=== PATIENT | female | born 1960 | race Caucasian/White ===

== ENCOUNTER 2022-10-18 13:06 | Outpatient (OUT) | payer MEDICARE, MEDICAID, SELFPAY ==
[2022-10-18 14:33] LABS: Basophils Absolute Auto 0.1 10^3/uL (0.0-0.1); Basophils Percent Auto 0.7 % (0.2-2.0); Eosinophils Absolute Auto 0.1 10^3/uL (0.0-0.7); Eosinophils Percent Auto 0.7 % (0.9-7.0); Immature Granulocytes Abs Auto 0.04 10^3/uL (0.00-0.03); Immature Granulocytes Pct Auto 0.3 % (0.0-0.5); Lymphocytes Percent Auto 15.4 % (20.5-60.0); Mean Corpuscular HGB Conc 33.3 g/dL (29.9-35.2); Mean Corpuscular Hemoglobin 32.7 pg (26.7-34.0); Mean Platelet Volume 11.7 fL (9.5-13.5); Monocytes Absolute Auto 0.7 10^3/uL (0.3-0.8); Monocytes Percent Auto 5.4 % (1.7-12.0); Neutrophils Absolute Auto 10.3 10^3/uL (1.4-6.5); Neutrophils Percent Auto 77.5 % (43.0-75.0); Platelet Count 239 10^3/uL (150-450); Red Cell Distribution Width 12.8 % (11.0-15.0); White Blood Count 13.3 10^3/uL (4.0-11.0)
[2022-10-18 15:07] LABS: Estimated Average Glucose 143 mg/dL; Glycohemoglobin A1C 6.6 % (4.5-6.2)
[2022-10-18 15:25] LABS: Alanine Aminotransferase 56 U/L (14-59); Albumin Globulin Ratio 0.9; Albumin Level 3.6 g/dL (3.4-5.0); Alkaline Phosphatase 103 U/L (46-116); Anion Gap 8.7; Aspartate Amino Transferase 39 U/L (15-37); BUN Creatinine Ratio 27.4; Bilirubin Total 0.3 mg/dL (0.2-1.0); Calcium 9.6 mg/dL (8.5-10.1); Carbon Dioxide 28.9 mmol/L (21.0-32.0); Chloride 100 mmol/L (98-107); Estimated GFR (African America 59 (>=60); Estimated GFR (Non-African Ame 49 (>=60); Globulin 3.9 g/dL; Glucose 144 mg/dL (74-106); Potassium 3.6 mmol/L (3.5-5.1); Sodium 134 mmol/L (136-145); Thyroid Stimulating Hormone 1.811 uIU/mL (0.358-3.740); Total Protein 7.5 g/dL (6.4-8.2)
[2022-10-18 17:26] LABS: Free T4 0.96 ng/dL (0.76-1.46)
== END 2022-10-18 13:07 | disposition home or self-care (01) ==
LOC: LAB 13:12
PROVIDERS: PCP Family Medicine; Visit Provider Family Medicine
DX: D51.3 Other dietary vitamin B12 deficiency anemia (principal); N18.30 Chronic kidney disease, stage 3 unspecified; E03.9 Hypothyroidism, unspecified; E11.22 Type 2 diabetes mellitus with diabetic chronic kidney disease
CPT/HCPCS: 36415; 80053; 82607; 83036; 84439; 84443; 85025

== ENCOUNTER 2022-11-09 14:37 | Outpatient (OUT) | payer MEDICARE, MEDICAID, SELFPAY ==
[2022-11-09 15:08] LABS: Basophils Absolute Auto 0.1 10^3/uL (0.0-0.1); Basophils Percent Auto 0.5 % (0.2-2.0); Eosinophils Absolute Auto 0.2 10^3/uL (0.0-0.7); Hematocrit 42.5 % (36.0-48.0); Hemoglobin 14.5 g/dL (12.0-16.0); Immature Granulocytes Abs Auto 0.05 10^3/uL (0.00-0.03); Immature Granulocytes Pct Auto 0.3 % (0.0-0.5); Lymphocytes Percent Auto 13.2 % (20.5-60.0); Mean Corpuscular HGB Conc 34.1 g/dL (29.9-35.2); Mean Corpuscular Volume 96.6 fL (81.0-99.0); Mean Platelet Volume 11.3 fL (9.5-13.5); Monocytes Percent Auto 6.7 % (1.7-12.0); Neutrophils Percent Auto 78.3 % (43.0-75.0); Platelet Count 228 10^3/uL (150-450); Red Cell Distribution Width 13.2 % (11.0-15.0); White Blood Count 15.3 10^3/uL (4.0-11.0)
== END 2022-11-09 14:38 | disposition home or self-care (01) ==
PROVIDERS: PCP Family Medicine; Visit Provider Family Medicine
DX: D72.828 Other elevated white blood cell count (principal); R74.8 Abnormal levels of other serum enzymes
CPT/HCPCS: 36415; 82607; 85025

== ENCOUNTER 2023-02-27 11:09 | Outpatient (OUT) | payer MEDICARE, MEDICAID, SELFPAY ==
[2023-02-27 11:44] LABS: Basophils Absolute Auto 0.1 10^3/uL (0.0-0.1); Basophils Percent Auto 0.5 % (0.2-2.0); Eosinophils Absolute Auto 0.2 10^3/uL (0.0-0.7); Eosinophils Percent Auto 1.4 % (0.9-7.0); Hematocrit 44.9 % (36.0-48.0); Hemoglobin 15.2 g/dL (12.0-16.0); Immature Granulocytes Abs Auto 0.06 10^3/uL (0.00-0.03); Immature Granulocytes Pct Auto 0.5 % (0.0-0.5); Lymphocytes Absolute Auto 2.4 10^3/uL (1.2-3.8); Lymphocytes Percent Auto 18.8 % (20.5-60.0); Mean Corpuscular HGB Conc 33.9 g/dL (29.9-35.2); Mean Corpuscular Hemoglobin 33.3 pg (26.7-34.0); Mean Corpuscular Volume 98.5 fL (81.0-99.0); Mean Platelet Volume 11.5 fL (9.5-13.5); Monocytes Absolute Auto 0.8 10^3/uL (0.3-0.8); Monocytes Percent Auto 6.3 % (1.7-12.0); Neutrophils Absolute Auto 9.4 10^3/uL (1.4-6.5); Neutrophils Percent Auto 72.5 % (43.0-75.0); Platelet Count 280 10^3/uL (150-450); Red Blood Count 4.56 10^6/uL (4.20-5.40); Red Cell Distribution Width 12.9 % (11.0-15.0)
[2023-02-27 11:47] LABS: Estimated Average Glucose 137 mg/dL; Glycohemoglobin A1C 6.4 % (4.5-6.2)
[2023-02-27 11:59] LABS: Alanine Aminotransferase 63 U/L (14-59); Albumin Globulin Ratio 0.9; Albumin Level 3.6 g/dL (3.4-5.0); Alkaline Phosphatase 108 U/L (46-116); Anion Gap 11.8; Aspartate Amino Transferase 36 U/L (15-37); BUN Creatinine Ratio 18.3; Bilirubin Total 0.4 mg/dL (0.2-1.0); Calcium 9.6 mg/dL (8.5-10.1); Chloride 100 mmol/L (98-107); Chol HDL Ratio 3.5; Cholesterol 211 mg/dL (<=200); Estimated GFR (African America >60 (>=60); Estimated GFR (Non-African Ame 51 (>=60); Glucose 145 mg/dL (74-106); HDL Cholesterol 61 mg/dL (40-60); Potassium 3.8 mmol/L (3.5-5.1); Sodium 137 mmol/L (136-145); Thyroid Stimulating Hormone 2.467 uIU/mL (0.358-3.740); Total Protein 7.6 g/dL (6.4-8.2); Triglycerides 167 mg/dL (<=150); VLDL CHOLESTEROL 33.4 mg/dL
[2023-02-27 12:08] LABS: Free T4 1.17 ng/dL (0.76-1.46)
== END 2023-02-27 11:10 | disposition home or self-care (01) ==
LOC: LAB 11:10
PROVIDERS: PCP Family Medicine; Visit Provider Family Medicine
DX: E11.65 Type 2 diabetes mellitus with hyperglycemia (principal); E03.9 Hypothyroidism, unspecified
CPT/HCPCS: 36415; 80053; 80061; 82043; 83036; 84439; 84443; 85025

== ENCOUNTER 2023-06-27 10:01 | Outpatient (OUT) | payer MEDICARE, MEDICAID, SELFPAY ==
[2023-06-27 10:58] LABS: Basophils Absolute Auto 0.1 10^3/uL (0.0-0.1); Basophils Percent Auto 0.5 % (0.2-2.0); Eosinophils Absolute Auto 0.2 10^3/uL (0.0-0.7); Eosinophils Percent Auto 1.3 % (0.9-7.0); Hematocrit 45.2 % (36.0-48.0); Hemoglobin 15.2 g/dL (12.0-16.0); Immature Granulocytes Abs Auto 0.04 10^3/uL (0.00-0.03); Immature Granulocytes Pct Auto 0.3 % (0.0-0.5); Lymphocytes Absolute Auto 2.5 10^3/uL (1.2-3.8); Lymphocytes Percent Auto 21.5 % (20.5-60.0); Mean Corpuscular HGB Conc 33.6 g/dL (29.9-35.2); Mean Corpuscular Hemoglobin 32.8 pg (26.7-34.0); Mean Corpuscular Volume 97.4 fL (81.0-99.0); Mean Platelet Volume 11.4 fL (9.5-13.5); Monocytes Absolute Auto 0.7 10^3/uL (0.3-0.8); Monocytes Percent Auto 6.1 % (1.7-12.0); Neutrophils Percent Auto 70.3 % (43.0-75.0); Platelet Count 251 10^3/uL (150-450); Red Blood Count 4.64 10^6/uL (4.20-5.40); Red Cell Distribution Width 12.4 % (11.0-15.0); White Blood Count 11.4 10^3/uL (4.0-11.0)
[2023-06-27 11:23] LABS: Alanine Aminotransferase 54 U/L (14-59); Albumin Globulin Ratio 1.1; Alkaline Phosphatase 90 U/L (46-116); Anion Gap 13.9; Aspartate Amino Transferase 38 U/L (15-37); Bilirubin Total 0.4 mg/dL (0.2-1.0); Calcium 9.9 mg/dL (8.5-10.1); Carbon Dioxide 25.9 mmol/L (21.0-32.0); Chloride 100 mmol/L (98-107); Chol HDL Ratio 3.1; Cholesterol 188 mg/dL (<=200); Estimated GFR (African America 60 (>=60); Estimated GFR (Non-African Ame 49 (>=60); Globulin 3.5 g/dL; Glucose 102 mg/dL (74-106); HDL Cholesterol 61 mg/dL (40-60); Potassium 3.8 mmol/L (3.5-5.1); Sodium 136 mmol/L (136-145); Thyroid Stimulating Hormone 2.855 uIU/mL (0.358-3.740); Total Protein 7.5 g/dL (6.4-8.2); Triglycerides 132 mg/dL (<=150); VLDL CHOLESTEROL 26.4 mg/dL
[2023-06-27 11:27] LABS: Microalbumin Urine Random 9.8 mg/dL (<=30.0)
[2023-06-27 11:33] LABS: Estimated Average Glucose 120 mg/dL; Free T4 1.16 ng/dL (0.76-1.46); Glycohemoglobin A1C 5.8 % (4.5-6.2)
== END 2023-06-27 10:02 | disposition home or self-care (01) ==
LOC: LAB 10:03
PROVIDERS: PCP Family Medicine; Visit Provider Family Medicine
DX: E78.5 Hyperlipidemia, unspecified (principal); E66.9 Obesity, unspecified; E11.9 Type 2 diabetes mellitus without complications; E03.9 Hypothyroidism, unspecified; K76.0 Fatty (change of) liver, not elsewhere classified
CPT/HCPCS: 36415; 80053; 80061; 82043; 83036; 84439; 84443; 85025

== ENCOUNTER 2023-11-07 07:50 | Outpatient (OUT) | payer MEDICARE, MEDICAID, SELFPAY ==
[2023-11-07 08:21] LABS: Bilirubin Urine NEGATIVE (NEGATIVE); Blood Urine NEGATIVE (NEGATIVE); Clarity Urine CLEAR (CLEAR); Color Urine LT. YELLOW (YELLOW); Glucose Urine UA NEGATIVE (NEGATIVE); Ketones Urine NEGATIVE (NEGATIVE); Leukocyte Esterase Urine SMALL (NEGATIVE); Nitrite Urine NEGATIVE (NEGATIVE); Protein Urine NEGATIVE (NEG/TRACE); Specific Gravity Urine 1.015 (1.005-1.025); Urobilinogen Urine 0.2 EU/dL (0.2-1.0)
== END 2023-11-07 07:51 | disposition home or self-care (01) ==
LOC: LAB 07:50
PROVIDERS: PCP Family Medicine; Visit Provider Family Medicine
DX: R30.0 Dysuria (principal)
CPT/HCPCS: 81003; 87086

== ENCOUNTER 2024-08-20 16:44 | Emergency (ER) | payer OTHER, MEDICARE, MEDICAID, SELFPAY ==
--- OUTSIDE RECORDS SUMMARY | 2005-03-20 10:20 | XMS_ITS | Continuity of Care Document ---
Author Name [facility] Organization [facility] Care Team Providers Care Violin Tutor Name Role Phone [facility] Unavailable Unavailable Problems Combined list of problems from Department of Defense and [facility] facilities. It does not include entries that were removed or entered in error. Problem Status Onset Date Problem Type Date of Resolution Comments Source ADJUSTMENT DISORDER NOS Active Condition [facility] Chest Pain * (ICD-9-CM 786.50) Active Condition [facility] Diabetes Mellitus Type II or unspecified * (ICD-9-CM 250.00) Active Condition [facility] Dysphagia Active Condition [facility] Elevated Liver Function Tests Active Condition [facility] Fibromyalgia * (ICD-9-CM 729.0) Active Condition [facility] Gastroesophageal Reflux Active Condition [facility] Headache * (ICD-9-CM 784.0) Active Condition [facility] Hypertension Active [facility] Hypothyroidism Active Condition [facility] Low Back Pain * (ICD-9-CM 724.2) Active Condition [facility] Nystagmus, 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 Medication Details Route Status Patient Instructions Prescription Expires Prescription Number Last Dispense Date Ordering Provider Order Date Order Qty Source ACETAMINOPH EN 325MG TAB TAKE TWO TABLETS BY MOUTH PRN ORAL ACTIVE DOC PI[address] 2004 [facility] APPLE CIDER VINEGAR CAP/TAB TAKE ONE TABLET BY MOUTH EVERY DAY ORAL ACTIVE ELIAS DEWITT 2004 [facility] GARLIC OIL CAP 1 CAP/TAB EVERY DAY ACTIVE DOC [address] 2004 [facility] Allergies, Adverse Reactions, Alerts Combined list of allergies from [facility] of Defense and [facility] facilities. It does not include entries that were removed or entered in error. Substance Category Reaction Severity Reaction type Status Date Reported Comments Source TRAMADOL Propensity to adverse reactions to drug (finding) NAUSEA,VOM ITING active 4 [facility] Immunizations Combined list of available immunizations from the Department of Defense and Veterans Affairs facilities. Immunization Series Date Given Administered By Site Reaction Lot Number CVX Code Drug Car Deliverer Status Comments Source INFLUENZA, WHOLE 2002 16 complet ed [facility] INFLUENZA, UNSPECIFIED FORMULATION 2001 88 complet ed [facility] INFLUENZA, UNSPECIFIED FORMULATION 2000 88 complet ed [facility] TETANUS TOXOID, UNSPECIFIED FORMULATION 1997 ELIAS SUE 112 complet ed [facility] INFLUENZA (HISTORICAL) 1997 CHAD LOCKHART 88 complet ed [facility] Social History Combined list of available smoking, tobacco, and other social history from Department of Defense and Veterans Affairs facilities. Social History Type Response Date Comment Sourc e Tobacco smoking status AZIS TOBACCO FORMER USER MORE 12 MONTHS 03/20/2005 QUIT IN 1987 [facility] History of tobacco use TOBACCO FORMER USER MORE 12 MONTHS 04/12/2004 QUIT SMOKING IN 1988 [facility] History of tobacco use TOBACCO FORMER USER MORE 12 MONTHS 06/26/2003 QUIT IN 1987 [facility] History of tobacco use TOBACCO [place] NON USER 09/22/2002 [facility] History of tobacco use TOBACCO FORMER USER MORE 12 MONTHS 10/23/2001 quit 1988 [facility] History of tobacco use TOBACCO FORMER USER MORE 12 MONTHS 03/05/2001 [facility] History of tobacco use TOBACCO FORMER USER MORE 12 MONTHS 03/28/2000 [facility]
--- OUTSIDE RECORDS SUMMARY | 2017-02-14 07:55 | XMS_ITS | Continuity of Care Document ---
Author Organization [facility] Address [address] [place] [address] Phone Care Team Providers Care Parlor Maid Name Role Phone Aidna Quinones MD Unavailable Unavailable Allergies, Adverse Reactions, Alerts Substance Reaction Status Criticality HYDROCODONE BITARTRATE Active No In formation acetaminophen Active No Information tramadol flushing(severe) Active No Informat ion Medications Medication Instructions Dosage Effective Dates (start - stop) Status Comments lisinopril 20 mg-hydrochloroth iazide 25 mg tablet take 1 tablet PO BID - Active Per patient she only wants to take 1 tablet a day. metformin 1,000 mg tablet take 1 tablet (1000MG) by ORAL route 2 times every day with morning and evening meals 1000 MG - Active furosemide 20 mg tablet take 1 tablet (20MG) by oral route every day as needed - Active Synthroid 150 mcg tablet take 1 tablet by oral route every day 150 MCG - Active Coreg 6.25 mg tablet take 1 tablet by oral route 2 times every day with food 6.25 MG - Active Unifine Pentips 31 X 5/16 needle Inject needle by SubQ tissue daily - Active UNIFINE Lantus Solostar 100 unit/mL (3 mL) Sub-Q Insulin Pen inject 50 Unit by subcutaneous route every day 50 Unit - Active pt assistance taking 55 units QHS and increasing 3 x 3 until FBS = 130 or less Accu-Chek Multiclix Lancet Kit apply by [facility].(Non-Drug; Combo Route) route use as directed Not Available - Active ACCU-CHEK STRIPS AND LANCETS omega-3 fatty acids-fish oil 300 mg-1,000 mg Cap one po bid - Active otc aspirin 325 mg tablet take 1 tablet by oral route every day 325 MG - Active omeprazole 20 mg capsule,delayed release take 1 capsule by oral route every day 30 minutes to 1 hour before a meal 20 MG - Active Procedures Procedure Date OFFICE/OUTPATIENT VISIT, EST OFFICE/OUTPATIENT VISIT, EST ROUTINE VENIPUNCTURE OFFICE/OUTPATIENT VISIT, EST OFFICE/OUTPATIENT VISIT, EST ROUTINE VENIPUNCTURE HEMOGLOBIN A1C T4,FREE TSH OFFICE/OUTPATIENT VISIT, EST ROUTINE VENIPUNCTURE OFFICE/OUTPATIENT VISIT, EST OFFICE/OUTPATIENT VISIT, EST ROUTINE VENIPUNCTURE OFFICE/OUTPATIENT VISIT, EST OFFICE/OUTPATIENT VISIT, EST OFFICE/OUTPATIENT VISIT, EST ROUTINE VENIPUNCTURE OFFICE/OUTPATIENT VISIT, EST OFFICE/OUTPATIENT VISIT, EST ROUTINE VENIPUNCTURE COMP METABOLIC PANEL HEMOGLOBIN A1C T4,FREE TSH URINALYSIS, COMPLETE,W/RFL CU 4 OFFICE/OUTPATIENT VISIT, EST ROUTINE VENIPUNCTURE COMP METABOLIC PANEL TSH T4,FREE HEMOGLOBIN A1C OFFICE/OUTPATIENT VISIT, EST OFFICE/OUTPATIENT VISIT, EST ROUTINE VENIPUNCTURE COMP METABOLIC PANEL HEMOGLOBIN A1C OFFICE/OUTPATIENT VISIT, EST OFFICE/OUTPATIENT VISIT, EST ROUTINE VENIPUNCTURE COMP METABOLIC PANEL TSH URINALYSIS, COMPLETE,W/RFL CU 3 T4,FREE HEMOGLOBIN A1C MEASURE BLOOD OXYGEN LEVEL EST OFFICE VISIT LEVEL 3 OFFICE/OUTPATIENT VISIT, EST EST OFFICE VISIT LEVEL 3 OFFICE/OUTPATIENT VISIT, EST OFFICE/OUTPATIENT VISIT, EST EST OFFICE VISIT LEVEL 3 ROUTINE VENIPUNCTURE COMP METABOLIC PANEL HEMOGLOBIN A1C EST OFFICE VISIT LEVEL 3 OFFICE/OUTPATIENT VISIT, EST EST OFFICE VISIT LEVEL 3 Thyroid Function Screen COMP METABOLIC PANEL HEMOGLOBIN A1C UA, COMPLETE (DIPSTICK&MICROSCOPIC) Urine Micro Alburin ROUTINE VENIPUNCTURE OFFICE/OUTPATIENT VISIT, EST Cortisol, Total EST OFFICE VISIT LEVEL 3 Thyroid Function Screen COMP METABOLIC PANEL HEMOGLOBIN A1C URINALYSIS NONAUTO W/O SCOPE ROUTINE VENIPUNCTURE OFFICE/OUTPATIENT VISIT, EST EST OFFICE VISIT LEVEL 3 OFFICE/OUTPATIENT VISIT, EST MEASURE BLOOD OXYGEN LEVEL EST OFFICE VISIT LEVEL 3 ROUTINE VENIPUNCTURE TSH W/REFL FREE T4 COMP METABOLIC PANEL HEMOGLOBIN A1C Urine Culture OFFICE/OUTPATIENT VISIT, EST T3, TOTAL EST OFFICE VISIT LEVEL 4 ROUTINE VENIPUNCTURE TSH HEMOGLOBIN A1C Urine Micro Alburin MEASURE BLOOD OXYGEN LEVEL EST OFFICE VISIT LEVEL 4 ROUTINE VENIPUNCTURE CBC W/DIFF & PLT COMP METABOLIC PANEL HEMOGLOBIN A1C LIPID PANEL TSH UA, COMPLETE (DIPSTICK&MICROSCOPIC) OFFICE/OUTPATIENT VISIT, EST EST OFFICE VISIT LEVEL 4 ROUTINE VENIPUNCTURE CBC W/DIFF & PLT COMPREHENSIVE METABOLIC PANEL W/EGFR Apr HEMOGLOBIN A1C LIPID PANEL TSH NEW OFFICE VISIT LEVEL 4 UA, COMPLETE (DIPSTICK&MICROSCOPIC) Advance Directives Directive Yes / No Effective Date File Name No Information Encounters Encounter Description Practice Location Reason(s) For Visit Diagnoses Date Provider Providers Copied on Encounter [facility], [address] [place] [address], [id number] , tel:[phone] [facility] No Information 7 Joni Bermudez. [address] [place] [address], [id number], [place]. tel:[phone] [facility], [address] [place] [address], [id number] , [place] tel: [phone] [facility] No Information Joni Bermudez. [address] [place] [address], [id number], [place]. tel:[phone] OFFICE/OUTPA TIENT VISIT, [facility], [address] [place] [address], [id number] , [place] tel:[phone] [facility] er follow (chief complaint) Chest pain, unspecifiedChro sydney kidney disease, stage 3 (moderate)Type 2 diabetes mellitus without complicationsEs sential (primary) hypertension Joni Bermudez. [address] [place] [address], [id number], [place]. tel:[phone] OFFICE/OUTPA TIENT VISIT, [facility], [address] [place] [address], [id number] , [place] tel:[phone] [facility] diabetes check (chief complaint)B/P (chief complaint) Type 2 diabetes mellitus without complicationsEs sential (primary) hypertensionChe st pain, unspecified 5 Joni Bermudez. [address], [place], [id number], [place]. tel:[phone] [facility], [address], [place], [id number] , [place] tel: [phone] [facility] No Information 5 Joni Bermudez. [address], [place], [id number], [place]. tel:[phone] [facility], [address], [place], [id number] , [place] tel: [phone] [facility] Diabetes 5 Joni Bermudez. [address], [place], [id number], [place]. tel:[phone] [facility], [address], [place], [id number] , [place] tel: [phone] [facility] lab draw (chief complaint) No Information 5 Joni Bermudez. [address], [place], [id number], [place]. tel:[phone] OFFICE/OUTPA TIENT VISIT, [facility], [address] [place] [address], [id number] , [place] tel:[phone] [facility] Sweating/passin g out/weak (chief complaint) Diabetes Mellitus Type 2, Uncomplicated Omer- 5 Joni Bermudez. [address] [place] [address], [id number], [place]. tel:[phone] OFFICE/OUTPA TIENT VISIT, [facility], [address], [place], [id number] , [place] tel: [phone] [facility] review 06/05/14 lab results (chief complaint) Diabetes Mellitus Type 2, UncomplicatedMo rbid obesityHypothyr oidismHypertens ion, Benign 5 Joni Bermudez. [address], [place], [id number], [place]. tel:[phone] [facility], [address] [place] [address], [id number] , [place] tel: [phone] [facility] lab test (chief complaint) No Information 5 Joni Bermudez. [address] [place] [address], [id number], [place]. tel:[phone] OFFICE/OUTPA TIENT VISIT, EST [facility], [address] [place] [address], [id number] , [place] tel:[phone] [facility] review 04/01/14 labs (chief complaint) Diabetes Mellitus Type 2, UncomplicatedHy pertension, BenignHypothyro idismObesity 5 Joni Bermudez. [address] [place] [address], [id number], [place]. tel:[phone] [facility], [address] [place] [address], [id number] , [place] tel: [phone] [facility] lab draw (chief complaint) No Information 5 Joni Bermudez. [address] [place] [address], [id number], [place]. tel:[phone] [facility], [address] [place] [address], [id number] , [place] tel:[phone] [facility] Chronic Kidney Disease, Stage II (mild)Hypothyro idismDiabetes Mellitus Type 2, Uncomplicated 5 Joni Bermudez. [address] [place] [address], [id number], [place]. 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 [address], [place], [id number], [place]. 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 [address], [place], [id number], [place]. 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 [address] [place] [address], [id number], [place]. tel:[phone] [facility], [address] [place] [address], [id number] , [place] tel:[phone] [facility] Chronic Kidney Disease, Stage III (moderate) 4 Hemmer Crystal. [address], [place], [id number], [place]. OFFICE/OUTPA TIENT VISIT, [facility], [address] [place] [address], [id number] , [place] tel:[phone] [facility] review labs (chief complaint)medic ation refill (chief complaint) Diabetes with neurological manifestations, type II or unspecified type, uncontrolledHyp ertension, BenignHypothyro idismAbnormal Liver EnzymesChronic Kidney Disease, Stage III (moderate) 4 Hemmer Crystal. [address], [place], [id number], [place]. [facility], [address] [place] [address], [id number] , [place] tel:[phone] [facility] No Information 4 Hemmer Crystal. [address], [place], [id number], [place]. OFFICE/OUTPA TIENT VISIT, [facility], [address] [place] [address], [id number] , [place] tel: [phone] [facility] review labs (chief complaint) Diabetes with neurological manifestations, type II or unspecified type, uncontrolledHyp ertension, BenignHypothyro idismAbnormal Liver EnzymesChronic Kidney Disease, Stage II (mild)Screen for colon cancer 4 Hemmer Crystal. [address], [place], [id number], [place]. OFFICE/OUTPA TIENT VISIT, [facility], [address] [place] [address], [id number] , [place] tel: [phone] [facility] lab draw (chief complaint)eye reddness (chief complaint) Conjunctivitis 4 Hemmer Crystal. [address] [place] [address], [id number], [place]. OFFICE/OUTPA TIENT VISIT, [facility], [address] [place] [address], [id number] , [place] tel: [phone] [facility] follow up on lab / diagnostic test (chief complaint) Diabetes with neurological manifestations, type II or unspecified type, uncontrolledHyp ertension, BenignHypothyro idismAbnormal Liver EnzymesChronic Kidney Disease, Stage II (mild)Abdominal pain, right upper quadrant 4 Hemmer Crystal. [address] [place] [address], [id number], [place]. [facility], [address] [place] [address], [id number] , tel: [phone] [facility] No Information 4 Hemmer Crystal. [address] [place] [address], [id number], [place]. OFFICE/OUTPA TIENT VISIT, [facility], [address] [place] [address], [id number] , [place] tel: [phone] [facility] follow up on lab / diagnostic test (chief complaint)cold symptoms (chief complaint) Diabetes with neurological manifestations, type II or unspecified type, uncontrolledHyp ertension, BenignHypothyro idismElevated liver enzymesChronic kidney disease, stage II (mild)Upper Respiratory Infection, Acute 3 Hemmer Crystal. [address], [place], [id number], [place]. [facility], [address] [place] [address], [id number] , tel:[phone] [facility] No Information 3 Hemmer Crystal. [address], [place], [id number], [place]. 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 [address] [place] [address], [id number], [place]. OFFICE/OUTPA TIENT VISIT, [facility], [address] [place] [address], [id number] , [place] tel: [phone] [facility] follow up on lab / diagnostic test (chief complaint) Diabetes with neurological manifestations, type II or unspecified type, uncontrolledHyp ertension, BenignObesityEd emaHypothyroidi sm 3 Hemmer Crystal. [address] [place] [address], [id number], [place]. [facility], [address] [place] [address], [id number] , [place] tel:[phone] [facility] No Information 3 Hemmer Crystal. [address] [place] [address], [id number], [place]. OFFICE/OUTPA TIENT VISIT, [facility], [address] [place] [address], [id number] , [place] tel: [phone] [facility] diabetes (chief complaint) Diabetes with neurological manifestations, type II or unspecified type, uncontrolledObe sityHypertensio n, BenignHearing loss 3 Hemmer Crystal. [address] [place] [address], [id number], [place]. OFFICE/OUTPA TIENT VISIT, EST [facility], [address] [place] [address], [id number] , tel:[phone] [facility] f/u diabetic (chief complaint) Diabetes with neurological manifestations, type II or unspecified type, uncontrolledGER DHepatomegalyHy pothyroidismChr onic kidney disease (CKD), stage II (mild) 3 Hemmer Crystal. [address] [place] [address], [id number], [place]. [facility], [address] [place] [address], [id number] , tel: [phone] [facility] No Information 3 Hemmer Crystal. [address] [place] [address], [id number], [place]. [facility], [address] [place] [address], [id number] , tel: [phone] [facility] Diabetes with neurological manifestations, type II or unspecified type, uncontrolled 2 Hemmer Crystal. [address] [place] [address], [id number], [place]. EST OFFICE VISIT LEVEL 3 [facility], [address] [place] [address], [id number] , tel: [phone] [facility] abdominal discomfort (chief complaint) Abdominal pain, right upper quadrantGERDHep atomegalyDiabet es with neurological manifestations, type II or unspecified type, uncontrolledHyp othyroidism 2 Hemmer Crystal. [address] [place] [address], [id number], [place]. EST OFFICE VISIT LEVEL 3 [facility], [address] [place] [address], [id number] , tel: [phone] [facility] abdominal discomfort (chief complaint) Abdominal pain, right upper quadrantGERDChe st Pain, Unspecified 2 Hemmer Crystal. [address], [place], [id number], [place]. OFFICE/OUTPA TIENT VISIT, EST [facility], [address] [place] [address], [id number] , [place] tel: [phone] [facility] med refill (chief complaint) Diabetes with neurological manifestations, type II or unspecified type, uncontrolledHyp ertension, BenignHypothyro idismAbdominal pain, right upper quadrant 2 Hemmer Crystal. [address], [place], [id number], [place]. [facility], [address] [place] [address], [id number] , [place] tel: [phone] [facility] No Information 2 Hemmer Crystal. [address] [place] [address], [id number], [place]. EST OFFICE VISIT LEVEL 3 [facility], [address] [place] [address], [id number] , [place] tel: [phone] [facility] diabetes (chief complaint) Diabetes with neurological manifestations, type II or unspecified type, uncontrolledHyp ertension, BenignHypothyro idismGERD 2 Hemmer Crystal. [address], [place], [id number], [place]. EST OFFICE VISIT LEVEL 3 [facility], [address] [place] [address], [id number] , [place] tel: [phone] [facility] diabetes (chief complaint) Diabetes with neurological manifestations, type II or unspecified type, uncontrolledHyp ertension, BenignHypothyro idismObesityGER D 2 Hemmer Crystal. [address] [place] [address], [id number], [place]. EST OFFICE VISIT LEVEL 3 [facility], [address] [place] [address], [id number] , [place] tel: [phone] [facility] medication refill (chief complaint) Diabetes with neurological manifestations, type II or unspecified type, uncontrolledHyp ertension, BenignHypothyro idismAbnormal Liver Enzymes 2 Hemmer Crystal. [address], [place], [id number], [place]. EST OFFICE VISIT LEVEL 3 [facility], [address], [place], [id number] , [place] tel:[phone] [facility] follow up on lab / diagnostic test (chief complaint)cold symptoms (chief complaint) Hypertension, BenignHypothyro idismSinusitis, AcuteAbnormal Liver Enzymes 2 Hemmer Crystal. [address], [place], [id number], [place]. EST OFFICE VISIT LEVEL 3 [facility], [address] [place] [address], [id number] , [place] tel:[phone] [facility] medication administration (chief complaint)weigh t gain (chief complaint) OtherHypertensi on, BenignHypothyro idismChest Pain, UnspecifiedAbdo mera pain, other specified site 1 Hemmer Crystal. [address], [place], [id number], [place]. [facility], [address] [place] [address], [id number] , tel:[phone] [facility] Chest Pain, Unspecified 1 Snehal CHOI Pat. [address] [place] [address], [id number]. tel:[phone] EST OFFICE VISIT LEVEL 4 [facility], [address] [place] [address], [id number] , [place] tel:[phone] [facility] hypertension (chief complaint)hypot hyroidism (chief complaint)diabe rishabh (chief complaint) HypothyroidismD iabetes with neurological manifestations, type II or unspecified type, uncontrolledChe st Pain, UnspecifiedHype rtension, Benign Oct- 1 Celec DO Thelma. [address] [place] [address], [id number], [place]. tel:[phone] [facility], [address] [place] [address], [id number] , [place] tel:[phone] [facility] labs (chief complaint) Mixed hyperlipidemiaU nspecified acquired hypothyroidismB enign essential hypertensionDia betes with neurological manifestations, type II or unspecified type, uncontrolled 1 Dani Ramirez. [address] [place], [address]. tel:[phone] EST OFFICE VISIT LEVEL 4 [facility], [address], [place], [id number] , [place] tel: [phone] [facility] medication refill (chief complaint) Benign essential hypertensionUns pecified acquired hypothyroidismD iabetes with neurological manifestations, type II or unspecified type, uncontrolledUnd iagnosed cardiac murmursMixed hyperlipidemiaM ixed hyperlipidemia 1 Dani Ramirez. [address] [place] [address], [id number]. tel:[phone] [facility], [address] [place] [address], [id number] , [place] tel:[phone] [facility] ct abd 07-12-10 received (chief complaint) Other and unspecified ovarian cystHematuria, Unspecified 1 Dani Ramirez. [address] [place] [address], [id number]. tel:[phone] [facility], [address] [place] [address], [id number] , [place] tel: [phone] [facility] back pain abnormal ua (chief complaint) Urinary frequencyBackac he, unspecified 1 Dani Ramirez. [address] [place], [address]. tel:[phone] [facility], [address] [place] [address], [id number] , [place] tel:[phone] [facility] presents to review lab results (chief complaint) Benign essential hypertensionMor bid obesityProteinu riaUnspecified acquired hypothyroidismU nspecified acquired hypothyroidismB enign essential hypertensionMor bid obesityProteinu riaProteinuriaU nspecified acquired hypothyroidismO ther and unspecified ovarian cyst 1 Dani Ramirez. [address] [place], [address]. tel:[phone] EST OFFICE VISIT LEVEL 4 [facility], [address], [place], [id number] , [place] tel:[phone] [facility] No Information 1 Dani Ramirez. [address] [place], [address]. tel:[phone] [facility], [address], [place], [id number] , [place] tel:[phone] [facility] +yeast, faxed diflucan (chief complaint) No Information 1 Dani Ramirez. [address] [place], [address]. tel:[phone] NEW OFFICE VISIT LEVEL 4 [facility], [address] [place] [address], [id number] , [place] tel:[phone] [facility] pain (chief complaint) Diabetes with neurological manifestations, type II or unspecified type, uncontrolledBen ign essential hypertensionMor bid obesityBackache , unspecifiedScia ticaBenign essential hypertensionDia betes with neurological manifestations, type II or unspecified type, uncontrolledBac kache, unspecifiedProt einuria 1 Dani Ramirez. [address] [place] [address], [facility]. tel:[phone] Family History Family Member Type Diagnosis Age At Onset Mother Problem (finding) Peripheral vascular dis ease Father Problem (finding) diabetes melli tus in first degree relative Father Problem (finding) hypertension Mother Problem (finding) Mother Problem (finding) Allergies Sister Problem (finding) asthma Mother Problem (finding) coronary arterioscleros is Mother Problem (finding) hypertension Sister Problem (finding) Irritable bowel disease Mother Problem (finding) osteoarthritis Father Problem (finding) coronary arterioscleros is Mother Problem (finding) Myocardial infarction Payers Payer name Insurance type Covered green party ID [facility] [id number] Social History Type Description Quantity Date Captured Comments Sex Female Smoking Status No Information Chief Complaint And Reason For Visit No Information Reason For Referral Reason For Referral No Information Plan Of Treatment Date Type Action Status Goal Td vaccine. Due on due Goal Sigmoidoscopy. Due on due Goal FOBT. Due on due Goal Mammogram. Due on due Goal Pap/HPV testing. Due on due Goal Influenza vaccine. Due on due Goal Lipid Panel. Due on due Goal Depression screening. Due on due Goal Urine Microalbumin. Due on due Goal Tdap. Due on due Goal Urinalysis. Due on 11 due Goal Urinalysis. Due on due Goal Tdap. Due on due Goal Urine Microalbumin. Due on due Goal Influenza vaccine. Due on due Goal Depression screening. Due on due Goal Td vaccine. Due on 15 due Goal Sigmoidoscopy. Due on due Goal Lipid Panel. Due on due Goal FOBT. Due on due Goal Pap/HPV testing. Due on due Goal Mammogram. Due on due Goal Mammogram. Due on due Goal Urinalysis. Due on 11 due Goal Sigmoidoscopy. Due on due Goal Td vaccine. Due on 15 due Goal Urine Microalbumin. Due on due Goal Depression screening. Due on due Goal Pap/HPV testing. Due on due Goal Influenza vaccine. Due on Oc due Goal FOBT. Due on due Goal Tdap. Due on due Goal Lipid Panel. Due on due Goal Td vaccine. Due on 15 due Goal Influenza vaccine. Due on Se due Goal Urine Microalbumin. Due on due Goal Pap/HPV testing. Due on due Goal Sigmoidoscopy. Due on due Goal Mammogram. Due on 5 due Goal Depression screening. Due on due Goal Lipid Panel. Due on due Goal FOBT. Due on due Goal Urinalysis. Due on 11 due Goal Tdap. Due on due Goal Td vaccine. Due on 15 due Goal FOBT. Due on due Goal Sigmoidoscopy. Due on due Goal Depression screening. Due on due Goal Pap/HPV testing. Due on due Goal Tdap. Due on due Goal Lipid Panel. Due on due Goal Urinalysis. Due on 11 due Goal Mammogram. Due on due Goal Urine Microalbumin. Due on due Goal Influenza vaccine. Due on due Goal Depression screening. Due on due Goal Tdap. Due on due Goal Influenza vaccine. Due on due Goal Urine Microalbumin. Due on due Goal Mammogram. Due on 5 due Goal Pap/HPV testing. Due on due Goal Td vaccine. Due on 15 due Goal Urinalysis. Due on 11 due Goal Sigmoidoscopy. Due on due Goal Lipid Panel. Due on 015 due Goal FOBT. Due on due Goal Influenza vaccine. Due on due Goal FOBT. Due on due Goal Tdap. Due on due Goal Mammogram. Due on due Goal Td vaccine. Due on 15 due Goal Pap/HPV testing. Due on due Goal Urinalysis. Due on 11 due Goal Depression screening. Due on due Goal Urine Microalbumin. Due on due Goal Sigmoidoscopy. Due on due Goal Mammogram. Due on 5 due Goal Urine Microalbumin. Due on due Goal Pap/HPV testing. Due on due Goal Tdap. Due on due Goal Depression screening. Due on due Goal FOBT. Due on due Goal Influenza vaccine. Due on due Goal Urinalysis. Due on due Goal Sigmoidoscopy. Due on due Goal Td vaccine. Due on due Goal Urine Microalbumin. Due on due Goal Urinalysis. Due on due Goal FOBT. Due on due Goal Depression screening. Due on due Goal Sigmoidoscopy. Due on due Goal Pap/HPV testing. Due on due Goal Mammogram. Due on due Goal Influenza vaccine. Due on due Goal Td vaccine. Due on due Goal Tdap. Due on due Goal Pap/HPV testing. Due on due Goal Sigmoidoscopy. Due on due Goal Urinalysis. Due on due Goal Influenza vaccine. Due on due Goal Depression screening. Due on due Goal Mammogram. Due on due Goal Td vaccine. Due on due Goal FOBT. Due on due Goal Urine Microalbumin. Due on due Goal Tdap. Due on due Goal Urine Microalbumin. Due on due Goal Depression screening. Due on due Goal Influenza vaccine. Due on due Goal Td vaccine. Due on 15 due Goal Sigmoidoscopy. Due on due Goal Urinalysis. Due on 11 due Goal FOBT. Due on due Goal Tdap. Due on due Goal Pap/HPV testing. Due on due Goal Mammogram. Due on 5 due Goal Pap/HPV testing. Due on due Goal Depression screening. Due on due Goal Urine Microalbumin. Due on due Goal Urinalysis. Due on 11 due Goal Influenza vaccine. Due on due Goal Sigmoidoscopy. Due on due Goal FOBT. Due on due Goal Tdap. Due on due Goal Mammogram. Due on due Goal Td vaccine. Due on due Referral Ordered: Patient complains of bladder pain, radiating up her back, chronic (related to [facility]) ordered Referral Ordered: Diabetic Education. Diabetic Education. Diabetic Education. Diabetic Education. Diabetic Education. Diabetic Education. ordered Referral Ordered: spoke with client 07/14/10. Client to schedule appt. recommended [facility]. (related to Other and unspecified ovarian cyst) ordered Referral Ordered: OBGYN. ordered Referral Ordered: Nephrology. ordered History Of Present Illness Encounter Date Complaint History Of Prese nt Illness er follow Patient went to ER due to high blood pressure and chest pain. She would like to go over labs and tests she had done. - Marcos LOPEZ diabetes check Client here for a HgbA1c check. Previous readings 09/15/14: 7.4, 06/10/14: 8.7, 04/07/14: 8.2. Todays reading is: 7.7. JOHN Virgen B/P Client B/P is el evated today. She states she took her medication this morning. She has been having occasional chest discomfort, states it aches at times. JOHN Virgen lab draw Patient here for lab draw. Blood obtained from right hand after one attempt. John Srinivasan. Sweating/passing out/weak Patien t here for an episode of passing out, weak and extreme sweating. Patient woke up two nights aga weak and sweating. Patient got a piece of hard candy but passed out after putting in mouth. Woke few hours later. Patient's blood sugar was 160 at bed and patient took 40 units of insulin. After passing out and waking back up blood sugar was 140's. Patient did just complete 24 day challange of [facility]. Patient seeking advise on what to do now. Patient was instructed that instead of hard candy to buy cake icing gel to use next time and to call 911. Patient was too worried about bills from [employer] and didn't want the extra bill. John Srinivasan. review 06/05/14 lab results Patie nt here today to review 06/05/14 lab results. -JOHN HUNTER. lab test Client here for lab draw. Labs obtained from right antecubital on first attempt w/o difficulty. Demarco Portillo review 04/01/14 labs Patient here today to review 04/01/14 lab results. She is only taking 1 Lisinopril/HCTZ a day because 2 she felt were making her too tired. -JOHN HUNTER. lab draw Pt. here for lab draw only. Carson Javed R.N. Functional Status Date Functional Assessmen t No Information Instructions Date Instruction Additional Infor ayla Walking program recommended Prescribe medications Review medications Review medication side effects Go to ER if symptoms persist or worsen Call if symptoms persist Review medications Review medication side effects Order labs/studies Renew medications Call if symptoms persist Walking program recommended Go to ER if symptoms persist or worsen Walking program recommended Call if symptoms persist Go to ER if symptoms persist or worsen Order labs/studies Review medication side effects Review medications Renew medications Prescribe medications Order consults Assessments Type Assessment Date No Information Patient Care Teams Name Effective Dates (start - stop) Status Members No Information
--- OUTSIDE RECORDS SUMMARY | 2024-08-12 09:20 | XMS_ITS | Encounter Summary ---
Author Organization [facility] Address [facility] [place] [address] Care Team Providers Care Pipe Buffer Name Role Phone Elisabeth Edwards MD Primary Care Provider [phone] Jesus Waters MD Unavailable [phone] Source Comments In the event this information is protected by the Federal Confidentiality of Alcohol and Drug AbusePatient Records regulations: The Federal rules restrict any use of the information to criminally investigate or prosecute any alcohol or drug abuse patient.[facility] Reason for Visit * Reason Comments Follow Up CKD Encounter Details Date Type Department Care Team (Latest Contact Info) Description 08/12/2024 9:20 AM EDT Office Visit Kidney Medicine [address] [place], [place] [id number] Jose Matthews MD [address] [place] [address] Stage 3a chronic kidney disease (HCC) (Primary Dx); Proteinuria, unspecified type; Hypertension, unspecified type; Type 2 DM with CKD stage 3 and hypertension (HCC); Screening for genitourinary condition Social History Tobacco Use Types Packs/Day Years Used Date Smoking Tobacco: Former Cigarettes 1 13 0 06/25/2010 - 06/26/2023 Smokeless Tobacco: Never Tobacco Cessation:Counseling Given: Not Answered Alcohol Use Standard Drinks/Week Comments No 0 (1 standard drink = 0.6 oz pur e alcohol) Social Connection and Isolation Panel [NHANES] A nswer Date Recorded In a typical week, how many times do you talk on the phone with family, friends, or neighbors? Three times a week 02/17/20 How often do you get togethe r with friends or relatives? Three times a week 02/16/2022 How often do you attend chur ch or jainism services? 1 to 4 times per year 02/16/2022 Do you belong to any clubs o r organizations such as pentecostalism groups, unions, fraternal or athletic groups, or school groups? Yes 02/16/2022 How often do you attend meet ings of the clubs or organizations you belong to? 1 to 4 times per year 02/16/2022 Are you , , di vorced, , never , or living with a partner? 02/16/2022 AUDIT-C Answer Date Recorded Q1: How often do you have a drink containing alcohol? Never 02/16/2022 Q2: How many drinks containi ng alcohol do you have on a typical day when you are drinking? Patient does not drink Q3: How often do you have si x or more drinks on one occasion? Never 02/16/2022 Overall Financial Resource Strain (CARDIA) Answe r Date Recorded How hard is it for you to pa y for the very basics like food, housing, medical care, and heating? Not very hard 02/16/2022 PHQ-2 Answer Date Recorded PHQ-2 score 1 01/03/2024 [employer] [facility] [employer] - Occupational Stress Questionnaire Answer Date Recorded Do you feel stress - tense, restless, nervous, or anxious, or unable to sleep at night because your mind is troubled all the time - these days? Not at all 02/16/2022 Exercise Vital Sign Answer Date Recorde d On average, how many days pe r week do you engage in moderate to strenuous exercise (like a brisk walk)? 2 days 02/16/2022 On average, how many minutes do you engage in exercise at this level? 60 min 02/16/2022 Hunger Vital Sign Answer Date Recorded Within the past 12 months, y ou worried that your food would run out before you got the money to buy more. Never true 02/17/20 22 Within the past 12 months, t he food you bought just didn't last and you didn't have money to get more. Never true 02/16/2022 PRAPARE - Transportation Answer Date Re corded In the past 12 months, has l ack of transportation kept you from medical appointments or from getting medications? No 01/20 In the past 12 months, has l ack of transportation kept you from meetings, work, or from getting things needed for daily living? No 02/16/2022 Housing Stability Vital Sign Answer Antony e Recorded In the last 12 months, was t here a time when you were not able to pay the mortgage or rent on time? No 02/16/2022 In the last 12 months, how many places have you lived? 1 02/16/2022 In the last 12 months, was t here a time when you did not have a steady place to sleep or slept in a chcf (including now)? No 02/16/2022 Area Deprivation Index Answer Date Chi rded National Score (1-100), lower number is lower ri sk 86 06/30/2022 State Score (1-10), lower number is lower risk 8 06/30/2022 Data from: https://www.neighborhoodatlas.medicine.[facility].edu/. Last address used for calculation [address] [place] 06/30/2022 Education Answer Date Recorded What is the highest level of school you have completed or the highest degree you have received? GED or equivalent Comments No Sex and Gender Information Value Date Recorded Sex Assigned at Not on file Legal Sex Female 1:12 PM EDT Gender Identity Not on file Sexual Orientation Not on file documented as of this encounter Last Filed Vital Signs Vital Sign Reading Time Taken Comments Blood Pressure 136/77 08/12/2024 9:21 AM EDT Pulse 63 08/12/2024 9:21 AM EDT Temperature - - Respiratory Rate - - Oxygen Saturation - - Inhaled Oxygen Concentration - - Weight 70 kg (154 lb 5.2 oz) 08/12/2024 9:21 AM EDT Height 157.5 cm (5' 2 ) 08/12/2024 9:21 AM EDT Body Mass Index 28.23 08/12/2024 9:21 AM EDT documented in this encounter Functional Status * Are you deaf or do you have serious difficulty hearing? Answer Date of Assessment Author No 06/26/2018 10:19 AM Bryce Licona RN * Are you blind or do you have serious difficulty seeing, even when wearing glasses? Answer Date of Assessment Author No 06/26/2018 10:19 AM Bryce Licona RN * Do you have serious difficulty walking or climbing stairs? Answer Date of Assessment Author Yes 06/26/2018 10:19 AM Bryce Licona RN * Do you have difficulty dressing or bathing? Answer Date of Assessment Author No 06/26/2018 10:19 AM Bryce Licona RN * Because of a physical, mental, or emotional condition, do you have difficulty doing errands alone such as visiting a doctor's office or shopping? Answer Date of Assessment Author No 06/26/2018 10:19 AM Bryce Licona RN documented as of this encounter Mental Status * Because of a physical, mental, or emotional condition, do you have serious difficulty concentrating, remembering, or making decisions? Answer Entry Date Author No 06/26/2018 10:19 AM Bryce Licona RN documented in this encounter Progress Notes * Jose Matthews MD - 08/12/2024 9:19 AM EDT [facility] SERVICE DATE: August 12, 2024 SERVICE TIME: 9:19 AM CHIEF COMPLAINT: Follow up of CKD 63 yr old female with DM2, hypertension, fatty liver, HLD, hypothyroidism, OA, GERD, uterine cancer(1986) s/p JESSICA, Upper airwaairway resistance syndrome (UARS), a subtype of obstructive sleep apnea,restless leg syndrome (unable to take Gabapentin and Lyrica), presumed meningiomas found incidentally on MRI and now with cerebral microbleeds - following with neurology Lakisha en y 08/2017; follows with endo and started Ozempic 07/2022 Non proliferative diabetic retinopathy HPI: Interval events reviewed Medications reviewed - losartan 25 BID, ozempic, amlodipine Renal function trend reviewed - Cr 1.1 - stable UPCR 1.0 Mild hyponatremia Blood pressure trend reviewed - office BP not quite at goal, reports home BP 125 systolic and occassionally up to 140s systolic Hba1c 7.4 PAST MEDICAL HISTORY: PAST MEDICAL HISTORY Diagnosis Date Arthritis Breast mass Cancer (HCC) uterus, breast lump Cerebral infarct (HCC) 01/21/2024 CKD (chronic kidney disease) stage 2, GFR 60-89 ml/min 06/30/2020 DM type 2 (diabetes mellitus, type 2) (HCC) Elevated serum creatinine 06/30/2020 Elevated WBCs 11/[address] Elisabeth Edwards GERD (gastroesophageal reflux disease) History of transfusion HLD (hyperlipidemia) HTN (hypertension) Hypothyroid OA (osteoarthritis) of knee Sleep apnea Steatohepatitis 2017 intraop biopsy during RYGBP MEDICATIONS: As reviewed with patient, and recalled by patient amLODIPine (NORVASC) 5 mg tablet Take 0.5 tablets by mouth two times a day. losartan (COZAAR) 25 mg tablet Take 1 tablet by mouth once daily. rosuvastatin (CRESTOR) 10 mg tablet Take 1 tablet by mouth three times a week. Ascorbic Acid (VITAMIN C) 1,000 mg tablet Take 1,000 mg by mouth once daily. semaglutide (OZEMPIC) 2 mg/dose (8 mg/3 mL) pen injector Inject 2 mg subcutaneously one time a week. ezetimibe (ZETIA) 10 mg tablet Take 1 tablet by mouth once daily. tiZANidine (ZANAFLEX) 2 mg tablet TAKE 1 TABLET BY MOUTH DAILY AT BEDTIME NEEDED FOR MUSCLE SPASTICITY fluticasone (FLONASE) 50 mcg/actuation nasal spray spray 2 sprays into each nostril every day vitamin B complex/folic acid (B COMPLEX 100 ORAL) Take by mouth. Taking liquid ubidecarenone Q-10 (CO Q-10) 10 mg cap Take by mouth two times a day. magnesium oxide (MAG-OX) 400 mg (241.3 mg magnesium) tablet TAKE 1 TABLET BY MOUTH IN THE MORNING, AND 1/2 TABLET BY MOUTH IN THE EVENING Blood Pressure Monitor Use to monitor blood pressure in the home as directed. alendronate (FOSAMAX) 70 mg tablet Take 70 mg by mouth one time a week. levothyroxine (SYNTHROID) 137 mcg tablet Take 1 tablet by mouth once daily. Biotin 10,000 mcg cap Take 10,000 mcg by mouth. diclofenac sodium (VOLTAREN) 1 % topical gel Apply 2 g to affected area four times daily. MULTI-VITAMIN ORAL Take 1 tablet by mouth once daily. Calcium-Cholecalciferol, D3, 500 mg(1,250mg) -400 unit per tablet Take 1 tablet by mouth once daily. EASY TOUCH ALCOHOL PREP PADS padm TRUE METRIX GLUCOSE TEST STRIP test strip once daily. ALLERGIES: ALLERGIES Allergen Reactions Nsaids (Non-Steroid* Other: See Comments GASTRIC BYPASS Acetaminophen Hives Atorvastatin Other: See Comments joint pains. Carvedilol Other: See Comments significant bradycardia Gabapentin Other: See Comments Hydrochlorothiazide Other: See Comments Decreased kidney function. Other Reaction(s): Other: See Comments Decreased kidney function. Hydrocodone-Acetami* Unknown Sulfamethoxazole Hives Other Reaction(s): Hives Sulfamethoxazole-Tr* Unknown Tramadol Other: See Comments tolerates percocet and hydrocodone Other Reaction(s): high BP, Nausea, Other: See Comments tolerates percocet and hydrocodone Trimethoprim Hives Other Reaction(s): Hives REVIEW OF SYSTEMS: General/ Constitutional: No complaints, No fever, No chills, No weight loss, No fatigue, No night sweats, No malaise and No weakness Cardiovascular: No complaints, No chest pain or pressure, No orthopnea, No dyspnea on exertion, No edema, No palpitations, No dizziness, No lightheadedness and No syncope Genitourinary: No complaints, No nocturia, No hesitancy, No frothy urine, No frequency, No pink or red urine, No flank pain, No dysuria, No oliguria, No polyuria, No incontinence and No straining PHYSICAL EXAM: BP 136/77 (BP Site: Left Arm, BP Position: Sitting, BP Cuff Size: Regular Adult) Pulse 63 Ht 157.5 cm (5' 2 ) Wt 70 kg (154 lb 5.2 oz) LMP 10/20/1986 (Within Months) BMI 28.23 kg/m?? Last 3 Encounter BP Readings: Date: BP: 06/25/2024 117/69 06/05/2024 137/75 04/10/2024 154/76 BP - standardized method Pulse 1 BP #1: 136/77 Pulse #1: 63 beats/min 2 BP #2 : 143/79 Pulse #2 : 64 beats/min 3 BP #3 : 145/80 Pulse #3 : 67 beats/min Average Orthostatic vitals Supine Sitting Standing BP cuff location BP cuff location: Left upper arm BP cuff size BP cuff size: regular adult Comments for BP values First BP (right) First BP (left) Constitutional:No acute distress, Responsive, Normal habitus and Well-nourished Neck:Trachea midline No jugular venous distension Cardiovascular:Regular rate and ryhthm, normal S1 and S2, no murmurs, rubs, or gallops No peripheral edema Respiratory:Normal respiratory effort. Lungs clear bilaterally. Abdomen:Soft, non-tender, non-distended. Normal bowel sounds. No abdominal bruit Psychiatric: Alert and oriented x self, place, time, and setting Normal mood/affect DATA: Diagnostic tests reviewed for today's visit: Outside labs and imaging reports, if any, were reviewed LABS Creatinine (mg/dL) Date Value 03/24/2024 1.10 12/21/2023 1.20 07/19/2023 1.16 07/03/2023 1.01 03/27/2023 1.06 03/05/2023 1.03 12/05/2022 1.05 08/28/2022 1.04 06/13/2022 1.10 06/06/2022 1.00 01/09/2022 1.13 09/20/2021 1.24 12/02/2020 1.19 10/28/2020 1.28 08/13/2020 1.18 03/29/2020 1.04 02/06/2020 1.08 12/26/2019 1.15 09/12/2019 1.05 03/10/2019 1.11 08/02/2018 1.16 06/25/2018 1.09 06/24/2018 1.03 06/04/2018 1.18 03/05/2018 1.20 12/13/2017 1.04 12/13/2017 1.06 08/28/2017 1.29 08/21/2017 1.34 03/21/2017 1.67 BUN (mg/dL) Date Value 03/24/2024 36 12/21/2023 39 07/19/2023 40 07/03/2023 26 03/27/2023 32 03/05/2023 27 12/05/2022 35 08/28/2022 30 06/13/2022 29 06/06/2022 27 12/02/2020 32 10/28/2020 40 08/13/2020 44 03/29/2020 28 02/06/2020 31 12/26/2019 25 09/12/2019 31 03/10/2019 25 08/02/2018 31 06/25/2018 18 Potassium (mmol/L) Date Value 03/24/2024 3.8 12/21/2023 4.5 07/19/2023 4.2 07/03/2023 4.1 03/27/2023 3.8 03/05/2023 4.2 12/05/2022 3.7 08/28/2022 3.4 06/13/2022 3.8 06/06/2022 3.5 12/02/2020 3.9 10/28/2020 4.1 08/13/2020 3.7 03/29/2020 4.3 02/06/2020 3.8 12/26/2019 4.1 09/12/2019 4.2 03/10/2019 4.3 08/02/2018 4.2 06/25/2018 4.2 CO2 (mmol/L) Date Value 03/24/2024 23 12/21/2023 23 07/19/2023 28 07/03/2023 22 03/27/2023 26 12/02/2020 29 10/28/2020 25 08/13/2020 27 03/29/2020 26 02/06/2020 24 Hemoglobin (g/dL) Date Value 03/24/2024 14.2 12/21/2023 13.2 03/27/2023 15.4 03/05/2023 15.7 12/05/2022 15.9 12/02/2020 13.3 10/28/2020 14.2 12/26/2019 13.9 03/10/2019 15.5 08/02/2018 13.8 WBC (k/uL) Date Value 03/24/2024 6.78 12/21/2023 11.16 03/27/2023 12.40 03/05/2023 11.20 12/05/2022 12.12 12/02/2020 7.74 10/28/2020 10.34 12/26/2019 8.89 03/10/2019 10.35 08/02/2018 10.46 Platelet Count (k/uL) Date Value 04/15/2024 234 03/24/2024 202 12/21/2023 239 03/27/2023 232 03/05/2023 249 12/02/2020 239 10/28/2020 215 12/26/2019 248 03/10/2019 280 08/02/2018 226 Creatinine, Ur Random (UCRR) (mg/dL) Date Value 03/24/2024 58.0 12/21/2023 57.7 12/21/2023 57.7 07/03/2023 85.6 05/01/2022 112.6 06/30/2020 62.5 03/29/2020 161.4 04/02/2019 112.0 12/13/2017 75.6 06/27/2017 65.3 03/21/2017 68.2 Protein, Urine Random (mg/dL) Date Value 03/24/2024 63 12/21/2023 27 No results found for: PROTTIMED Hemoglobin A1C Date Value Ref Range Status 05/01/2022 9.1 (H) 4.3 - 5.6 % Final Comment: [place] [employer] guidelines indicate that patients with HgbA1c in the range 5.7-6.4% are at increased risk for development of diabetes, and intervention by lifestyle modification may be beneficial. HgbA1c greater or equal to 6.5% is considered diagnostic of diabetes. 01/09/2022 7.5 (H) 4.3 - 5.6 % Final Comment: [place] [employer] guidelines indicate that patients with HgbA1c in the range 5.7-6.4% are at increased risk for development of diabetes, and intervention by lifestyle modification may be beneficial. HgbA1c greater or equal to 6.5% is considered diagnostic of diabetes. Hemoglobin A1C (POCT) Date Value Ref Range Status 06/05/2024 7.4 (A) 4.3 - 5.6 % Final Comment: Location:[facility], [address] [place] [address], [facility] of care (POC) Hemoglobin A1c (HGBA1C) testing is intended to assess glucose control and provide a management tool for patients known to have diabetes and their healthcare providers. Target HGBA1C levels may depend on specific clinical circumstances. POC HGBA1C is not intended for use as a diagnostic or screening test; laboratory-based testing should be used for diagnostic purposes. The following information is supplemental and may not be applicable to specific diabetes management situations: The POC device senior principal architect provides a normal range of 4.2% to 6.5% for the HGBA1C POC test. However, the [place] [employer] guidelines indicate that patients with HGBA1C in the range of 5.7% to 6.4% are at increased risk for development of diabetes and that intervention by lifestyle modification may be beneficial. A HGBA1C level greater than or equal to 6.5% is considered diagnostic of diabetes, pending confirmatory testing. Use of HGBA1C testing to evaluate glucose control may not be appropriate for patients with hemoglobin variants or other conditions (e.g. anemia) that alter red blood cell lifespan. 12/24/2023 6.2 (A) 4.3 - 5.6 % Final Comment: Location:[facility], [address] [place] [address], [id number] Point of care (POC) Hemoglobin A1c (HGBA1C) testing is intended to assess glucose control and provide a management tool for patients known to have diabetes and their healthcare providers. Target HGBA1C levels may depend on specific clinical circumstances. POC HGBA1C is not intended for use as a diagnostic or screening test; laboratory-based testing should be used for diagnostic purposes. The following information is supplemental and may not be applicable to specific diabetes management situations: The POC device senior principal architect provides a normal range of 4.2% to 6.5% for the HGBA1C POC test. However, the [place] [employer] guidelines indicate that patients with HGBA1C in the range of 5.7% to 6.4% are at increased risk for development of diabetes and that intervention by lifestyle modification may be beneficial. A HGBA1C level greater than or equal to 6.5% is considered diagnostic of diabetes, pending confirmatory testing. Use of HGBA1C testing to evaluate glucose control may not be appropriate for patients with hemoglobin variants or other conditions (e.g. anemia) that alter red blood cell lifespan. 08/04/2022 9.4 (A) 4.2 - 5.6 % Final Comment: Location:[facility], [address] [facility], [place], [place], [address] Point of care (POC) Hemoglobin A1c (HGBA1C) testing is intended to assess glucose control and provide a management tool for patients known to have diabetes and their healthcare providers. Target HGBA1C levels may depend on specific clinical circumstances. POC HGBA1C is not intended for use as a diagnostic or screening test; laboratory-based testing should be used for diagnostic purposes. The following information is supplemental and may not be applicable to specific diabetes management situations: The POC device senior principal architect provides a normal range of 4.2% to 6.5% for the HGBA1C POC test. However, the [place] [employer] guidelines indicate that patients with HGBA1C in the range of 5.7% to 6.4% are at increased risk for development of diabetes and that intervention by lifestyle modification may be beneficial. A HGBA1C level greater than or equal to 6.5% is considered diagnostic of diabetes, pending confirmatory testing. Use of HGBA1C testing to evaluate glucose control may not be appropriate for patients with hemoglobin variants or other conditions (e.g. anemia) that alter red blood cell lifespan. Cholesterol, Total (mg/dL) Date Value 04/01/2024 174 12/02/2020 185 HDL Cholesterol (mg/dL) Date Value 04/01/2024 57 12/02/2020 58 LDL Cholesterol, Calculated (mg/dL) Date Value 04/01/2024 92 12/02/2020 99 Triglyceride (mg/dL) Date Value 04/01/2024 124 12/02/2020 138 . Recent Labs 03/24/24 0934 HB 14.2 Recent Labs 03/24/24 0934 12/21/23 1004 VITD25 -- 62.0 CA 9.5 9.4 P -- 4.3 ALB 4.3 4.3 IMAGING Right Kidney: -Renal length: 11.8 cm -Parenchyma: Normal parenchymal echogenicity. Normal parenchymal thickness. -Collecting system: No hydronephrosis. -Calculus: No echogenic, shadowing calculus. -Lesion: None. Left Kidney: -Renal length: 10.5 cm -Parenchyma: Normal parenchymal echogenicity. Normal parenchymal thickness. -Collecting system: No hydronephrosis. -Calculus: No echogenic, shadowing calculus. -Lesion: None. Bladder: Incompletely distended, grossly unremarkable. URINE ANALYSIS Urine chemistry findings reviewed pH, Urine Date Value Ref Range Status 03/24/2024 6.0 <8.5 Final Specific [place], Ur Date Value Ref Range Status 03/24/2024 1.012 1.005 - 1.030 Final Glucose, Urine Date Value Ref Range Status 03/24/2024 Negative Negative Final Bilirubin, Urine Date Value Ref Range Status 03/24/2024 Negative Negative Final Ketones, Urine Date Value Ref Range Status 03/24/2024 Negative Negative Final Hemoglobin/Blood,Ur Date Value Ref Range Status 03/24/2024 Negative Negative Final Protein, Urine Date Value Ref Range Status 03/24/2024 2+ (A) Negative Final Urobilinogen Date Value Ref Range Status 03/24/2024 0.2 EU/dL 0.2-1.0 EU/dL Final Nitrites Date Value Ref Range Status 03/24/2024 Negative Negative Final WBC, Urine Date Value Ref Range Status 03/24/2024 0-5 /HPF 0-5 /HPF Final ASSESSMENT: 63 year old female coming for follow up of CKD Encounter Diagnosis ICD-10-CM 1. Screening for genitourinary condition Z13.89 UA DIP, URINE (POC) PLAN: 1. CKD stage 3a - in setting of hypertension, diabetes. Cr 1.0-1.2 at baseline. Hydration, avoidance of NSAIDs. Blood pressure and blood sugar control. Monitor kidney function 2. Albuminuria - in setting of diabetes. Also has retinopathy. On ARB and GLP1RA. Increase losartanto 50 BID. Consideration for SGLT2i - discuss with endo 3. Hypertension - medications reviewed. On losartan 25 BID, amlodipine 5 - plan to increase losartan to 50 BID 4. Type 2 diabetes with CKD stage 3a - on ARB. GLP1RA. Hba1c trend reviewed. Consideration for SGLT2i - discuss with endo All of the above diagnoses stated are associated to the principal diagnosis and tests and labs ordered and interpreted are directly associated with one and other or may play a role in the pathophysiology of each of them. Portions of this note might have been copied from previous encounters, if any,but have been updated as necessary. Follow up in 6 months Plan of care discussed with patient, all questions answered I spent a total of 35 minutes on the date of the service which included preparing to see the patient, [id number] patient care, completing clinical documentation, obtaining and/or reviewing separately obtained history, performing a medically appropriate examination, counseling and educating the pat ient/family/caregiver, and ordering medications, tests, or procedures. SIGNATURE: Jose Matthews MD, FACP, FASN PATIENT NAME: Lakshmi Candelaria DATE: August 12, 2024 TIME: 9:19 AM OFFICE NUMBER: [phone] CC: PRIMARY CARE PHYSICIAN: Elisabeth Edwards MD documented in this encounter Plan of Treatment Upcoming Encounters Date Type Department Care Team (Latest Contact Info) Description 12/05/2024 2:00 PM EDT Office Visit [facility] [address] [facility] [place] [address] Sima Paz, REJI.[employer] [address] [place] [address] Return in about 6 months (around 12/05/2024). 01/20/2025 9:20 AM EST Office Visit Kidney Medicine [address] [place] [address] Jose Matthews MD [address] [place], [place] [id number] 6 month follow up 04/10/2025 9:30 AM EST Office Visit Cardiology [address] [facility] [address] Aleksandar De La Garza DO [address] [facility] [place] [address] 1 year follow up 06/26/2025 10:15 AM EDT Office Visit OPHT Ophthalmology [address] [facility] [place] [address] Keo Hadley, OD [address] [facility] [place] [address] Annual Full Eye Exam with mac OCT Scheduled Orders Name Type Priority Associated Diagnoses Orde r Schedule COMPREHENSIVE METABOLIC PANEL Lab Routine Stage 3a chronic kidney disease (HCC) Proteinuria, unspecified type Expected: 08/12/2024, Expires: 11/11/2024 URINALYSIS (WITH MICROSCOPIC) WITH CULTURE IF INDICATED Lab Routine Stage 3a chronic kidney disease (HCC) Proteinuria, unspecified type Expected: 08/12/2024, Expires: 11/11/2024 PROTEIN / CREATININE RATIO Lab Routine Stage 3a chronic kidney disease (HCC) Proteinuria, unspecified type Expected: 08/12/2024, Expires: 11/11/2024 documented as of this encounter Procedures Procedure Name Priority Date/Time Associated Diagnosis Comments UA DIP, URINE (POC) Routine 08/12/2024 9:29 AM EDT Screening for genitourinary condition documented in this encounter Results * (ABNORMAL) UA DIP, URINE (POC) (08/12/2024 9:29 AM EDT) GLUCOSE UA (POCT) Negative Negative mg/dL [facility] BILIRUBIN UA (POCT) Negative Negative [facility] KETONE UA (POCT) Negative Negative mg/dL [facility] SPECIFIC GRAVITY UA (POCT) 1.020 1.005 - 1.030 [facility] HEMOGLOBIN/BLOOD UA (POCT) Negative Negative [facility] PH UA (POCT) 5.5 4.5 - 8.0 [facility] PROTEIN UA (POCT) 100(A) Negative mg/dL [facility] UROBILINOGEN UA (POCT) 0.2 Normal E.U./dL [facility] NITRITE UA (POCT) Negative Negative [facility] LEUKOCYTES UA (POCT) Small(A) Negative [facility] COLOR UA (POCT) Yellow [facility] CLARITY UA (POCT) Clear [facility] Urine specimen (specimen) URINE SPECIMEN / Unknown 08/12/2024 9:29 AM EDT Narrative [facility] POINT OF CARE - 08/12/2024 9:29 AM EDT Location:[facility], [address], [place], [place], [address] Jose Matthews MD POC TESTING Final Result [facility] POINT OF CARE [facility] [address] [place], [place] documented in this encounter Visit Diagnoses Diagnosis Stage 3a chronic kidney disease (HCC)- Primary Proteinuria, unspecified type Hypertension, unspecified type Type 2 DM with CKD stage 3 and hypertension (HCC) Screening for genitourinary condition Screening for other and unspecified genitourinary condition documented in this encounter Care Teams Pipe Buffer Relationship Specialty [place] [address] [place] [phone] PCP - General Family Medicine 03/20/18 Jesus Waters MD [address] [place] [address] Neurology 04/12/22 documented as of this encounter
[2024-08-20 16:52] VITALS: BP 176/99; PULSE 97; TEMP 36.6; O2SAT 91; BMI 28.2
--- OUTSIDE RECORDS SUMMARY | 2024-08-20 16:52 | XMS_ITS | Encounter Summary ---
Author Organization [facility] Address [address] [place] [address] Care Team Providers Care Travel Manager Name Role Phone Elisabeth Edwards MD Primary Care Provider [phone] Jesus Waters MD Unavailable [phone] Source Comments In the event this information is protected by the Federal Confidentiality of Alcohol and Drug AbusePatient Records regulations: The Federal rules restrict any use of the information to criminally investigate or prosecute any alcohol or drug abuse patient.[facility] Encounter Details Date Type Department Care Team (Late st Contact Info) Description 12/21/2022 Patient Msg Dermatology [facility] [place] [address] [place] [id number] Provider, [facility] Instructions Social History Tobacco Use Types Packs/Day Years Used Date Smoking Tobacco: Some Days Cigarettes 1 13 Started: 1974; Last attempted to quit: 1987 Smokeless Tobacco: Never Alcohol Use Standard Drinks/Week Comments No 0 [...] any clubs o r organizations such as methodist groups, unions, fraternal or athletic groups, or [...] PHQ-2 Answer Date Recorded PHQ-2 score 1 12/17/2022 [facility] - Occupational Stress [...] place to sleep or slept in a care home (including now)? No 02/16/2022 Area Deprivation Index Answer Date Chi rded National Score (1-100), lower number is lower ri sk 86 06/30/2022 State Score (1-10), lower number is lower risk 8 06/30/2022 Data from: https://www.neighborhoodatlas.medicine.[facility].edu/. Last address used for calculation [address] [...] on file documented as of this encounter Functional Status * Are you [...] of Assessment Author No 06/26/2018 10:19 AM EDT Bryce Gilliam RN documented as of this encounter Mental Status * Because of a physical, mental, or emotional condition, do you have serious difficulty concentrating, remembering, or making decisions? Answer Entry Date Author No 06/26/2018 10:19 AM EDT Bryce Gilliam RN documented in this encounter Plan of Treatment Upcoming Encounters Date Type Department Care Team (Latest Contact Info) Description 12/05/2024 2:00 PM EDT Office Visit Endocrinology [address] [place] [address] Sima Paz APRN.LABORATORY ASSOCIATE [address] [facility] [place] [address] Return in about 6 months (around 12/05/2024). 01/20/2025 9:20 AM EST Office Visit Kidney Medicine [address] [facility] [place] [address] Jose Matthews MD [address] [place] [address] 6 month follow up 04/10/2025 9:30 AM EST Office Visit Cardiology [address] [place] [address] Aleksandar De La Garza DO [address] [place] [address] 1 year follow up 06/26/2025 10:15 AM EDT Office Visit [facility] Ophthalmology [address] [place] [address] Keo Hadley, OD [address] [facility] [address] Annual Full Eye Exam with mac OCT documented as of this encounter Visit Diagnoses Not on filedocumented in this encounter Care Teams Travel Manager Relationship Specialty Start Date End Date Elisabeth Edwards MD [address] [place] [phone] PCP - General Family Medicine 03/20/18 Jesus Waters MD [address] [place] [address] Neurology 04/12/22 documented as of this encounter
--- OUTSIDE RECORDS SUMMARY | 2024-08-20 16:52 | XMS_ITS | Encounter Summary ---
Author Organization [facility] Address [address] [place] [address] Care Team Providers Care Airplane Pilot Crop Dusting Name Role Phone Elisabeth Edwards MD Primary Care Provider [phone] Elisabeth Edwards MD Primary Care Provider [phone] Encounter Details Date Type Department Care Team (Late st Contact Info) Description 04/20/[address] [facility] [address] [phone] Ijeoma Suarez LPN [address] [facility] [address] [place] [address] Atypical lobular hyperplasia (ALH) of right breast; Other benign mammary dysplasias of unspecified breast; Encounter for screening mammogram for malignant neoplasm of breast Social History Tobacco Use Types Packs/Day Years Used Date Smoking Tobacco: Never Assessed Comments Unknown Sex and Gender Information Value Date Recorded Sex Assigned at Not on file Legal Sex Female 6:50 PM EDT Gender Identity Not on file Sexual Orientation Not on file documented as of this encounter Plan of Treatment Upcoming Encounters Date Type Department Care Team (Late st Contact Info) Description 07/23/2025 10:30 AM EDT Office Visit [facility] [address] [facility] [address] [place] [phone] Yovanny He DO [address] [facility] [address] [place] [address] documented as of this encounter Visit Diagnoses Diagnosis Atypical lobular hyperplasia (ALH) of right breast Other benign mammary dysplasias of unspecified breast Encounter for screening mammogram for malignant neoplasm of breast documented in this encounter Care Teams Airplane Pilot Crop Dusting Relationship Specialty Start Date End Date Elisabeth Edwards MD PCP - General Family Medicine 08/04/22 07/03/24 Elisabeth Edwards MD [address] [place] [phone] PCP - General Family Medicine 07/04/24 documented as of this encounter
--- OUTSIDE RECORDS SUMMARY | 2024-08-20 16:52 | XMS_ITS | Encounter Summary ---
Author Organization [facility] Address [address] [place] [address] Care Team Providers Care Garment Looper Name Role Phone Elisabeth Edwards MD Primary Care Provider [phone] Elisabeth Edwards MD Primary Care Provider [phone] Encounter Details Date Type Department Care Team (Late st Contact Info) Description 03/20/2022 Abstract [facility] [address] [place] [phone] Kiana Hurt, [facility] [address] [place] [address] Social History Tobacco Use Types Packs/Day Years [...] EDT Office Visit [facility] [address] [phone] Yovanny He DO [address] [facility] [address] [place] [address] documented as of this encounter Visit Diagnoses Not on filedocumented in this encounter Care Teams Garment Looper Relationship Specialty Start Date End Date Elisabeth Edwards MD PCP - General Family Medicine 08/04/22 07/03/24 Elisabeth Edwards MD [address] [place] [phone] PCP - General Family Medicine 07/04/24 documented as of this encounter
--- OUTSIDE RECORDS SUMMARY | 2024-08-20 16:52 | XMS_ITS | Clinical Summary ---
Author Organization [facility] Address [address] [place] [id number] Care Team Providers Care Health Promotion Educator Name Role Phone Elisabeth Edwards MD Primary Care Provider [phone] Jesus Waters MD Unavailable [phone] Allergies Active Allergy Reactions Criticality Noted Date Comments Acetaminophen Hives 05/03/2023 Atorvastatin Other: See Comments 05/07/2020 joint pains. Carvedilol Other: See Comments 06/07/2020 significant bradycardia Gabapentin Other: See Comments 01/17/2016 Hydrochlorothiazide Other: See Comments 06/07/2020 Decreased kidney function. Other Reaction(s): Other: See Comments Decreased kidney function. Hydrocodone-Acetaminophen Unknown 08/10/2022 Nsaids (Non-Steroidal Anti-Inflammatory Drug) Other: See Comments High 10/31/2017 GASTRIC BYPASS Sulfamethoxazole Hives 05/03/2023 Other Reaction(s): Hives Sulfamethoxazole-Trimethopr im Unknown 08/10/2022 Tramadol Other: See Comments 01/17/2016 tolerates percocet and hydrocodone Other Reaction(s): high BP, Nausea, Other: See Comments tolerates percocet and hydrocodone Trimethoprim Hives 05/03/2023 Other Reaction(s): Hives Medications * This document contains information received from the source organization and may not represent a complete record from that organization. EASY TOUCH ALCOHOL PREP PADS padm 017 Active TRUE METRIX GLUCOSE TEST STRIP test strip once daily. 018 Active MULTI-VITAMIN ORALIndications:Sc reening for genitourinary condition,Essentia l hypertension,MACIAS (nonalcoholic steatohepatitis),A KI (acute kidney injury) Take 1 tablet by mouth once daily. Active Calcium-Cholecalci ferol, D3, 500 mg(1,250mg) -400 unit per tabletIndications: Screening for genitourinary condition,Essentia l hypertension,MACIAS (nonalcoholic steatohepatitis),A KI (acute kidney injury) Take 1 tablet by mouth once daily. Active diclofenac sodium (VOLTAREN) 1 % topical gelIndications:Bernie eaton osteoarthritis of left knee,S/P left unicompartmental knee replacement Apply 2 g to affected area four times daily. 6 Tube 2 019 Active Biotin 10,000 mcg cap Take 10,000 mcg by mouth. 018 Active levothyroxine (SYNTHROID) 137 mcg tabletIndications: Hypothyroidism, unspecified type Take 1 tablet by mouth once daily. 90 tablet 3 020 Active alendronate (FOSAMAX) 70 mg tablet Take 70 mg by mouth one time a week. 020 Active Blood Pressure Monitor Use to monitor blood pressure in the home as directed. 1 Kit 021 Active magnesium oxide (MAG-OX) 400 mg (241.3 mg magnesium) tablet TAKE 1 TABLET BY MOUTH IN THE MORNING, AND 1/2 TABLET BY MOUTH IN THE EVENING 135 tablet 3 023 Active ubidecarenone Q-10 (CO Q-10) 10 mg cap Take by mouth two times a day. Active vitamin B complex/folic acid (B COMPLEX 100 ORAL) Take by mouth. Taking liquid Active fluticasone (FLONASE) 50 mcg/actuation nasal spray spray 2 sprays into each nostril every day 16 mL 11 024 Active tiZANidine (ZANAFLEX) 2 mg tablet TAKE 1 TABLET BY MOUTH DAILY AT BEDTIME NEEDED FOR MUSCLE SPASTICITY 025 Active ezetimibe (ZETIA) 10 mg tabletIndications: Mixed hyperlipidemia Take 1 tablet by mouth once daily. 90 tablet 3 025 Active Ascorbic Acid (VITAMIN C) 1,000 mg tablet Take 1,000 mg by mouth once daily. Active semaglutide (OZEMPIC) 2 mg/dose (8 mg/3 mL) pen injectorIndication s:Type 2 diabetes mellitus with stage 3a chronic kidney disease, without long-term current use of insulin (HCC) Inject 2 mg subcutaneously one time a week. 9 mL 3 025 Active amLODIPine (NORVASC) 5 mg tablet Take 0.5 tablets by mouth two times a day. 90 tablet 3 025 Active rosuvastatin (CRESTOR) 10 mg tabletIndications: Hyperlipidemia associated with type 2 diabetes mellitus (HCC),Stenosis of carotid artery, unspecified laterality Take 1 tablet by mouth three times a week. 45 tablet 3 025 Active losartan (COZAAR) 50 mg tablet Take 1 tablet by mouth two times a day. 180 tablet 5 025 Active losartan (COZAAR) 25 mg tablet Take 1 tablet by mouth once daily. 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 Coreg was discontinued- changed to Amlodipine. No reoccurrence. Follows with cardiology- last visit 09/2018- stable f/u in 6 months Primary osteoarthritis of left knee 02/28/2018 Left knee DJD 02/28/2018 Overview (02/28/2018): Added automatically from request for surgery [id number] S/P gastric bypass 02/06/2018 Assessment & Plan (06/17/2018 11:46 AM EDT): Assessment: History of Gastric Bypass 08/27/2017 Candidal intertrigo 02/06/2018 Obesity, Class I, BMI 30-34.9 01/22/2018 Obesity (BMI 30-39.9) 07/31/2017 Overview (07/31/2017): Added automatically from request for surgery [id number] Type 2 diabetes mellitus wit h stage 3a chronic kidney disease, without long-term current use of insulin 03/23/2017 Assessment & Plan (06/17/2018 11:49 AM EDT): Assessment: Patient is currently not on any insulin or any other medications Hypothyroidism 03/23/2017 Assessment & Plan (02/07/2019 11:19 AM EST): Assessment: on Levothyroxine Morbid obesity 03/14/2017 Essential hypertension 03/14/2017 Assessment & Plan (02/07/2019 11:17 AM EST): Assessment: on amlodipine- labs stable Assessment & Plan (06/17/2018 11:44 AM EDT): Assessment: stable on medications to take morning of surgery 121/55 MACIAS (nonalcoholic steatohepatitis) 03/14/2017 Assessment & Plan (02/07/2019 11:17 AM EST): Assessment: labs stable Assessment & Plan (06/17/2018 11:46 AM EDT): Assessment: stable Resolved Problems Problem Noted Date Diagnosed Date Resolved Date CKD (chronic kidney disease) stage 2, GFR 60-89 ml/min 06/30/2020 06/30/2020 Chronic kidney disease, stage III (moderate) 8 06/30/2020 Assessment & Plan (02/07/2019 11:19 AM EST): Assessment: stable- last Cr 1.13 Assessment & Plan (06/17/2018 11:46 AM EDT): Assessment: stable MELYSSA on CPAP 03/14/2017 06/30/2022 Assessment & Plan (06/17/2018 11:45 AM EDT): Assessment: currently not using CPAP Encounters Date Type Department Care Team Description 08/12/2024 9:20 AM EDT Office Visit Kidney Medicine [address] [place] [address] Jose Matthews MD Stage 3a chronic kidney disease (HCC) (Primary Dx); Proteinuria, unspecified type; Hypertension, unspecified type; Type 2 DM with CKD stage 3 and hypertension (HCC); Screening for genitourinary condition 07/10/2024 Telephone Kidney Medicine [address] [facility] [place] [address] Jose Matthews MD Electronic Communication 06/25/2024 10:30 AM EDT Office Visit [facility]HT Ophthalmology [address] [place] [address] Keo Hadley S, OD Type 2 diabetes mellitus with both eyes affected by moderate nonproliferative retinopathy without macular edema, without long-term current use of insulin (HCC) (Primary Dx); Hx of transient ischemic attack (TIA); Intracranial meningioma (HCC); History of detached retina repair - Right Eye; Epiretinal membrane (ERM) of right eye; Pseudophakia of both eyes; History of YAG laser capsulotomy of lens, right 06/25/2024 9:30 AM EDT Office Visit Cardiology [address] [place] [address] Mónica Calderon, HEAVY EQUIPMENT OPERATOR APPRENTICE.VOICE PROFESSOR Mixed hyperlipidemia (Primary Dx); Essential hypertension; MELYSSA (obstructive sleep apnea); Mitral valve insufficiency, unspecified etiology; Hyperlipidemia associated with type 2 diabetes mellitus (HCC); Stenosis of carotid artery, unspecified laterality; Hypertensive heart disease without heart failure; History of tobacco use 06/06/2024 Results Follow-Up Endocrinology [address] [place] [address] Sima Paz APRN.CNP 06/05/2024 2:00 PM EDT Office Visit Endocrinology [address] [place] [address] Sima Paz APRN.VOICE PROFESSOR Type 2 diabetes mellitus with stage 3a chronic kidney disease, without long-term current use of insulin (HCC) (Primary Dx); Acquired hypothyroidism 06/05/2024 Travel 06/04/2024 Travel 06/03/2024 Telephone Cardiology [address] [place] [address] Aleksandar De La Garza DO Medication Problem from Last 3 Months Immunizations Immunization Administration Dates Next Due influenza (LAIV) vaccine, na nicki, unspecified formulation 12/10/2001,12/12/2000,12/18/1997 influenza vaccine, unspecified formulation 12/10,12/12/2000,12/18/1997 influenza vaccine, whole virus 02/18/2003 pneumococcal polysaccharide (PPV23) vaccine, 23 valent (PNEUMOVAX 23) 11/20/1991 tetanus toxoid (TT) vaccine, unspecified formulation 02/05/1998 Family History Medical History Relation Comments Diabetes Father Heart Father VHD, CAD S/P CAB G x4 Heart Mother S/P AVR; MVR, CA D Blindness Other Cataract Sister Anesthesia Problems No Family History Relation Status Comments Father Mother Other Sister Social History Tobacco Use Types Packs/Day Years [...] often do you attend chur ch or faith services? 1 to 4 times per year 02/16/2022 Do you belong to any clubs o r organizations such as sabianism groups, unions, fraternal or athletic groups, or [...] Answer Date Recorded PHQ-2 score 1 01/03/2024 [facility] - Occupational Stress [...] place to sleep or slept in a longterm (including now)? No 02/16/2022 Area Deprivation Index Answer Date Chi rded National Score (1-100), lower number is lower ri sk 86 06/30/2022 State Score (1-10), lower number is lower risk 8 06/30/2022 Data from: https://www.neighborhoodatlas.medicine.[facility].edu/. Last address used for calculation [address] [...] on file Sexual Orientation Not on file Last Filed Vital Signs Vital Sign Reading Time Taken Comments Blood Pressure 136/77 08/12/2024 9:21 AM EDT Pulse 63 08/12/2024 9:21 AM EDT Temperature 36.2 C (97.1 F) 03/24/2024 10:13 AM EST Respiratory Rate 18 03/24/2024 10:13 AM EST Oxygen Saturation 96% 06/25/2024 9:37 AM EDT Inhaled Oxygen Concentration - - Weight 70 kg (154 lb 5.2 oz) 08/12/2024 9:21 AM EDT Height 157.5 cm (5' 2 ) 08/12/2024 9:21 AM EDT Body Mass Index 28.23 08/12/2024 9:21 AM EDT Plan of Treatment Upcoming Encounters Date Type Department Care Team (Latest Contact Info) Description 12/05/2024 2:00 PM EDT Office [facility] [address] [facility] [place] [address] Sima Paz APRN.VOICE PROFESSOR [address] [facility] [place] [address] Return in about 6 months (around 12/05/2024). 01/20/2025 9:20 AM EST Office Visit Kidney Medicine [address] [place] [address] Jose Matthews MD [address] [place] [address] 6 month follow up 04/10/2025 9:30 AM EST Office Visit Cardiology [address] [facility] [place] [address] Aleksandar De La Garza DO [address] [facility] [place] [address] 1 year follow up 06/26/2025 10:15 AM EDT Office Visit [facility] Ophthalmology [address] [place] [address] Keo Hadley, OD [address] [place] [address] Annual Full Eye Exam with mac OCT Health Maintenance Due Date Last Done Comments Diabetic Foot Exam 1970 Anxiety Screening 1978 Depression Screening 1978 HIV Screening 1978 DTaP,Tdap,Td Vaccine (1 - Tdap) 12/23/1979 Hepatitis A Vaccine (1 of 2 - Risk 2-dose series) 12/23/1979 Cervical Cancer Screening 1981 Pneumococcal Vaccine: 50+ (2 of 2 - PCV) 11/19/1992 11/20/1991 CT Colonography 2005 Cologuard (FIT-DNA) 2005 Fecal Occult Blood 2005 Sigmoidoscopy 2005 Shingrix Vaccine (1 of 2) 2010 RSV Vaccine (1 - Risk 60-74 years 1-dose series) 2020 Annual PCP Team Chronic Dise ase Visit 02/16/2023 02/16/2022 Covid-19 Vaccine (1 - 2023-2 5 season) 2023 Medicare Advantage Annual We llness Visit 02/20/2024 Influenza Vaccine (#1) 2024 12/200 3, 12/10/2001, 12/10/2001, Additional history exists HbA1C 12/05/2024 06/05/2024, 11/0 05/2023, 08/04/2022, Additional history exists Urine Albumin:Creatinine Ratio 12/20/2024 1 02/19/2023, 07/03/2023, 05/01/2022, Additional history exists Serum Creatinine 03/24/2025 03/24/2024, 02/2023, 07/19/2023, Additional history exists LDL Cholesterol 04/01/2025 04/01/2024, 04/1 10/2023, 03/05/2023, Additional history exists Hemoglobin/Hematocrit 04/15/2025 04/15/2024 , 03/24/2024, 12/21/2023, Additional history exists Mammogram Screening 05/28/2025 05/28/2024, 05/28/2024, 06/11/2023, Additional history exists Dilated Retinal Exam 06/25/2025 06/25/2024, 07/20/2023, 02/05/2023, Additional history exists Colonoscopy 09/23/2031 09/22/2021, 12/29/2019 Colorectal Cancer Screening 09/23/2031 Hepatitis C Screening Completed 03/28/2023, 024 Medical Devices Implanted Type Area Director Multimedia Device Identifier Shelf Expiration Date Model / Serial / Lot Cement Simplex Gentamicin Bone High Viscosity 20ml Sterile 40gm - [id number] Implanted: 9 at [facility] (Quantity not on file) Cement / Putty Left: Bone - Knee [facility] 11/19/2019 [id number] / / [id number] Asnis Screw 2.0x12mm Implanted:Qty: 1 on 02/24/2019 by Francisco Beltre DPM at [facility] Implant Left: Foot LUCAS / / Tray Rocklin C Tibial Unicompartmental Knee Left Medial - [id number] Implanted: 9 at [facility] (Quantity not on file) Joint - Knee Left: Bone - Knee [employer] 04/01/2028 [id number] / / [id number] Component Rocklin Small Cocrmo Femoral Phase 3 Twin Peg Unicompartmental - [id number] Implanted: 9 at [facility] (Quantity not on file) Joint - Knee Left: Bone - Knee [employer] 12/25/2027 [id number] / / [id number] Screw Asnis Mirian 2.0x13mm - [id number] Implanted:Qty: 1 on 02/24/2019 by Francisco Beltre DPM at [facility] Screw Left: Foot LUCAS / / Wire Mesfin .054in Stainless Steel 9in Fixation 2 End [place]car Point - [id number] Implanted:Qty: 2 on 02/24/2019 by Francisco Beltre DPM at [facility] Wire Left: Foot BRASSELER [id number] / / Wire Mesfin .045in Stainless Steel 9in Fixation 2 End [place] - [id number] Implanted:Qty: 1 on 02/24/2019 by Francisco Beltre DPM at [facility] Wire Left: Mary LOCO [id number] / / Procedures Procedure Name Priority Date/Time Associated Diagnosis Comments UA DIP, URINE (POC) Routine 08/12/2024 9 :29 AM EDT Screening for genitourinary condition OCT MACULA CIRRUS OU (BOTH EYES) Routine 06/25/2024 11:19 AM EDT Type 2 diabetes mellitus with both eyes affected by moderate nonproliferative retinopathy without macular edema, without long-term current use of insulin (HCC) History of detached retina repair - Right Eye VISUAL FIELD 30-2 OU (BOTH EYES) Routine 06/25/2024 10:47 AM EDT Hx of transient ischemic attack (TIA) Intracranial meningioma (HCC) TSH BLD Routine 06/05/2024 2:53 PM EDT Acquired hypothyroidism HEMOGLOBIN A1C (POC) Routine 06/05/2024 1:57 PM EDT HEMATOCRIT Routine 04/15/2024 10:35 AM EST Easy bruising LIPID PANEL, FASTING Routine 04/01/2024 9:27 AM EST Mixed hyperlipidemia COMPREHENSIVE METABOLIC PANEL Routine 03/24/2024 9:34 AM EST Leukocytosis, unspecified type ALBUMIN/CREATININE RATIO, URINE Routine 12/21/2023 10:34 AM EDT Type 2 DM with CKD stage 3 and hypertension (HCC) Albuminuria HEPATITIS C ANTIBODY IA WITH CONFIRMATION Routine 03/28/2023 2:53 PM EST LFT elevation COLONOSCOPY SCREEN HIGH RISK (FRONT END USE ONLY) Routine 09/22/2021 11:10 AM EDT Screening for colon cancer from Last 3 Months or Most Recently Relevant to Health Maintenance Results * (ABNORMAL) UA DIP, URINE (POC) (08/12/2024 9:29 AM EDT) GLUCOSE UA (POCT) Negative Negative mg/dL [facility] BILIRUBIN UA (POCT) Negative Negative [facility] KETONE UA (POCT) Negative Negative mg/dL [facility] SPECIFIC GRAVITY UA (POCT) 1.020 1.005 - 1.030 [facility] HEMOGLOBIN/BLOOD UA (POCT) Negative Negative [facility] PH UA (POCT) 5.5 4.5 - 8.0 [facility] PROTEIN UA (POCT) 100(A) Negative mg/dL [facility] UROBILINOGEN UA (POCT) 0.2 Normal E.U./dL [facility] NITRITE UA (POCT) Negative Negative [facility] LEUKOCYTES UA (POCT) Small(A) Negative [facility] COLOR UA (POCT) Yellow [facility] CLARITY UA (POCT) Clear [facility] Urine specimen (specimen) URINE SPECIMEN / Unknown 08/12/2024 9:29 AM EDT Narrative [facility] POINT OF CARE - 08/12/2024 9:29 AM EDT Location:[facility], [address], [place], [place], [facility] Jose Matthews MD POC TESTING Final Result [facility] POINT OF CARE [facility] [address] [place], [place] * OCT MACULA CIRRUS OU (BOTH EYES) (06/25/2024 11:19 AM EDT) Anatomical Region Laterality Modality Other Narrative 06/25/2024 11:19 AM EDT Date of Procedure 06/25/2024. OCT Macula Interpretation Right Eye Abnormal foveal contour. Findings include Epiretinal membrane, Atrophy; Negative for Intraretinal fluid, Subretinal fluid. Left Eye Normal without fluid. Interval Change Right Eye Stable. Left Eye Stable. us Keo Johnsonlager OD OPHTHALMOLOGY Final Result * VISUAL FIELD 30-2 OU (BOTH EYES) (06/25/2024 10:47 AM EDT) Anatomical Region Laterality Modality Other Narrative 06/25/2024 11:17 AM EDT Date of Procedure 06/25/2024. Liquor Bridge Operator Information Registered Occupational Therapist: CALVIN. Poor fixation, reminded patient to fixate, poor cooperation. Patient states eyes want to close. Unusable Tobar visual field results due to High fixation losses and False Positives OS > OD . Reliability Right Eye Poor. Left Eye Poor. Interpretation Right Eye Non-specific defect. Left Eye Non-specific defect. Keo Hadley OD OPHTHALMOLOGY Final Result * THYROID STIMULATING HORMONE (06/05/2024 2:53 PM EDT) Pathologist [facility] TSH 1.430 0.270 - 4.200 mIU/L 06/06/2024 6:02 AM EDT [facility] Blood BLOOD SPECIMEN / Unknown Venipuncture / Unknown 06/05/2024 2:53 PM EDT 06/05/2024 2:54 PM EDT Sima Paz APRN.[facility] Final Result [facility] [address] * (ABNORMAL) HEMOGLOBIN A1C (POC) (06/05/2024 1:57 PM EDT) Pathologist [facility] Hemoglobin A1C (POCT) 7.4(A) 4.3 - 5.6 % [facility] Comment: Location:[facility], [address] [facility], [place], [place], [facility] Point of care (POC) Hemoglobin A1c (HGBA1C) [...] specific diabetes management situations: The POC device office 365 consultant provides a normal range of 4.2% to 6.5% for the HGBA1C POC test. However, the [place] Diabetes Association guidelines indicate that patients with [...] anemia) that alter red blood cell lifespan. 06/05/2024 1:57 PM EDT us Sima Paz APRN.CNP POC TESTING Final Result Performing Organization Address City/[facility]/ZIP Co de Phone Number [facility] [address] [place], [place] * HEMATOCRIT (04/15/2024 10:35 AM EST) Hematocrit 40.9 36.0 - 46.0 % 04/15/2024 10:59 AM EST [facility] Blood BLOOD SPECIMEN / Unknown Venipuncture / Unknown 04/15/2024 10:35 AM EST 04/15/2024 10:35 AM EST us Vitaly Curran MD LABORATORY Final Res ult [facility] [address] [facility] [place] [place] [address], * LIPID PANEL BASIC (04/01/2024 9:27 AM EST) Cholesterol, Total 174 <200 mg/dL 04/02/2024 3:13 AM EST [facility] Comment: <200 mg/dL, Desirable 200-239 mg/dL, Borderline high >239 mg/dL, High Triglyceride 124 <150 mg/dL 04/02/2024 3:13 AM EST [facility] Comment: <150 mg/dL, Normal 150-199 mg/dL, Borderline high 200-499 mg/dL, High >499 mg/dL, Very high HDL Cholesterol 57 >39 mg/dL 3:13 AM [facility] Comment: 40-59 mg/dL, Acceptable >59 mg/dL, High: Negative risk factor for coronary heart disease <40 mg/dL, Low: Positive risk factor for coronary heart disease Non HDL Cholesterol 117 <130 mg/dL 04/02/2024 3:13 AM [facility] Comment: <130 mg/dL, Optimal 130-159 mg/dL, Near optimal/above optimal 160-189 mg/dL, Borderline high 190-219 mg/dL, High >219 mg/dL, Very high Secondary prevention optimal non HDL Cholesterol levels are recommended to be <100 mg/dL Fasting Time 12 hrs 04/02/2024 3:13 AM [facility] VLDL Cholesterol 25 <30 mg/dL 04/02/19 25 3:13 AM EST [facility] TC:HDL Ratio 3.05 <5.10 04/02/2024 3:13 AM [facility] LDL Cholesterol, Calculated 92 <100 mg/dL 04/02/2024 3:13 AM [facility] Comment: <100 mg/dL, Optimal 100-129 mg/dL, Near optimal/above optimal 130-159 mg/dL, Borderline high 160-189 mg/dL, High >189 mg/dL, Very high Secondary prevention optimal LDL Cholesterol levels are recommended to be < 70 mg/dL LDL:HDL Ratio 1.61 <2.54 04/02/2024 3:13 AM [facility] Comment: Reference: 1. National Cholesterol Education Program ATP III Guideline At-A-Glance Quick Desk Reference: National Heart, Lung, and Blood Depue. National Institutes of Health. 2001: NIH Publication No. 01-3305. 2. An International Atherosclerosis Society position paper: global recommendations for the management of dyslipidemia: executive summary, Atherosclerosis. 2014: 232(2):410-413. Blood BLOOD SPECIMEN / Unknown Venipuncture / Unknown 04/01/2024 9:27 AM EST 04/01/2024 9:27 AM EST us Aleksandar De La Garza DO LABORATORY Final Result [facility] [address] [facility] [address] [place] [address], [facility] [address] [place] [address] * (ABNORMAL) COMP METABOLIC PANEL (03/24/2024 9:34 AM EST) Pathologist [facility] Protein, Total 7.3 6.3 - 8.0 g/dL 03/24/2024 11:15 AM EST [facility] Albumin 4.3 3.9 - 4.9 g/dL 03/24/2024 11:15 AM EST [facility] Calcium, Total 9.5 8.5 - 10.2 mg/dL 03/24/2024 11:15 AM EST [facility] Bilirubin, Total 0.3 0.2 - 1.3 mg/dL 03/24/2024 11:15 AM EST [facility] Alkaline Phosphatase 81 34 - 123 U/L 03/24/2024 11:15 AM EST [facility] AST 42(H) 13 - 35 U/L 03/24/2024 11:15 AM EST [facility] ALT 57(H) 7 - 38 U/L 03/24/2024 11:15 AM EST [facility] Glucose 156(H) 74 - 99 mg/dL 03/24/2024 11:15 AM EST [facility] Comment: The [place] Diabetes Association (ADA) provides guidance for cutoff values for fasting glucose and random glucose. The ADA defines fasting as no caloric intake for at least 8 hours. Fasting plasma glucose results between 100 to 125 mg/dL indicate increased risk for diabetes (prediabetes). Fasting plasma glucose results greater than or equal to 126 mg/dL meet the criteria for diagnosis of diabetes. In the absence of unequivocal hyperglycemia, results should be confirmed by repeat testing. In a patient with classic symptoms of hyperglycemia or hyperglycemic crisis, random plasma glucose results greater than or equal to 200 mg/dL meet the criteria for diagnosis of diabetes. Reference: Standards of Medical Care in Diabetes 2016, [place] Diabetes Association. Diabetes Care. 2016.39(Suppl 1). BUN 36(H) 7 - 21 mg/dL 03/24/2024 11:15 AM EST [facility] Creatinine 1.10(H) 0.58 - 0.96 mg/dL 03/24/2024 11:15 AM EST [facility] Sodium 133(L) 136 - 144 mmol/L 03/24/2024 11:15 AM EST [facility] Potassium 3.8 3.7 - 5.1 mmol/L 03/24/2024 11:15 AM EST [facility] Chloride 99 98 - 107 mmol/L 03/24/2024 11:15 AM [facility] CO2 23 22 - 30 mmol/L 03/24/2024 11:15 AM [facility] Anion Gap 11 8 - 15 mmol/L 03/24/2024 11:15 AM [facility] Estimated Glomerular Filtration Rate 57(L) >=60 mL/min/1. 73m 03/24/2024 11:15 AM [facility] Comment:Estimated Glomerular Filtration Rate (eGFR) is calculated using the 2020 CKD-EPI creatinine equation. This equation utilizes serum creatinine, sex, and age as parameters. The creatinine assay has traceable calibration to isotope dilution- mass spectrometry. Refer to KDIGO guidelines for clinical interpretation. In patients with unstable renal function, e.g. those with acute kidney injury, the eGFR may not accurately reflect actual GFR. Blood BLOOD SPECIMEN / Unknown Venipuncture / Unknown 03/24/2024 9:34 AM EST 03/24/2024 9:34 AM EST us Jono Trevino MD LABORATORY Final Result [facility] [address] [place] [address] * (ABNORMAL) ALBUMIN/CREATININE RATIO, URINE (12/21/2023 10:34 AM EDT) Creatinine, Ur Random (UCRR) 57.7 20.0 - 300.0 mg/dL 12/21/2023 4:25 PM EDT [facility] Albumin, Urine Random 156.0 mg/L 12/21/2023 4:25 PM EDT [facility] Albumin/Creat Ratio 270(H) <30 mg/g 12/21/2023 4:25 PM EDT [facility] Comment: Adult Male and Female Nephrotic Criteria: <30 mg/g is considered normal to mildly increased 30-300 mg/g is considered moderately increased >300 mg/g is considered severely increased KDIGO. (2013). KDIGO 2012 Clinical Practice Guideline for the Evaluation and Management of Chronic Kidney Disease. Official Journal of the International Society of Nephrology, 3(1), 1-150. Urine URINE SPECIMEN / Unknown Non Blood / Unknown 12/21/2023 10:34 AM EDT 12/21/2023 10:34 AM EDT us Day Valle APRN.VOICE PROFESSOR LABORATORY Final Res ult Performing Organization Address City/[facility]/ZIP Co de Phone Number [facility] [address] [place] [address], [place] * HEPATITIS C ANTIBODY IA WITH CONFIRMATION (03/28/2023 2:53 PM EST) Hep C Antibody IA Negative Negative 03/29/2023 1:45 PM EST [facility] Comment:The result suggests no evidence of active infection with Hepatitis C virus. Should recent infection be suspected, repeat testing may be considered 4-6 weeks after this draw. Blood BLOOD SPECIMEN / Unknown Venipuncture / Unknown 03/28/2023 2:53 PM EST 03/28/2023 2:53 PM EST us Jono Trevino MD LABORATORY Final Result Performing Organization Address City/[facility]/ZIP Co de Phone Number [facility] [address] [facility] [place] [id number], [place] * COLONOSCOPY SCREEN HIGH RISK (FRONT END USE ONLY) (09/22/2021 11:10 AM EDT) Anatomical Region Laterality Modality Other 09/22/2021 11:1 0 AM EDT Narrative 09/22/2021 11:30 AM EDT A31 Gastrointestinal Endoscopy Patient Name: Lakshmi Candelaria Procedure Date: 09/22/2021 11:10 AM Date of : 1960 Admit Type: Outpatient Age: 60 Room: [place] [address] Gender: Female Note Status: Finalized Attending MD: Elaina Puentes MD Procedure: Colonoscopy Indications: Screening for colorectal malignant neoplasm Providers: Elaina Puentes MD Patient Profile: Last Colonoscopy: several years ago. Referring Physician: Medicines: Meperidine 50 mg IV, Midazolam 3 mg IV Complications: No immediate complications. Requesting Provider: Procedure: Pre-Anesthesia Assessment: - ASA Grade Assessment: II - A patient with mild systemic disease. After I obtained informed consent, the scope was passed under direct vision. Throughout the procedure, the patient's blood pressure, pulse, and oxygen saturations were monitored continuously. The Colonoscope was introduced through the anus and advanced to the cecum, identified by appendiceal orifice and ileocecal valve. The colonoscopy was performed without difficulty. The patient tolerated the procedure well. The quality of the bowel preparation was good. The ileocecal valve, the appendiceal orifice and the rectum were photographed. Moderate Sedation: The administration of moderate sedation was initiated at 11:15 AM. Findings: The colon (entire examined portion) appeared normal. Small amounts of stool residue seen in cecum and proximal ascending colon. There is no endoscopic evidence of polyps in the entire colon. Impression: - The entire examined colon is normal. - No specimens collected. Estimated Blood Loss: Estimated blood loss: none. Recommendation: - Discharge patient to home. - Resume regular diet today. - Patient has a contact number available for emergencies. The signs and symptoms of potential delayed complications were discussed with the patient. Return to normal activities tomorrow. Written discharge instructions were provided to the patient. - Continue present medications. - Repeat colonoscopy in 10 years for surveillance. Procedure Code(s): --- Professional --- 81956, Colonoscopy, flexible; diagnostic, including collection of specimen(s) by brushing or washing, when performed (separate procedure) CPT copyright 2019 [employer]. All rights reserved. The codes documented in this report are preliminary and upon photocomposing machine operator review may be revised to meet current compliance requirements. Attending Participation: I personally performed the entire procedure. I was present and participated during the entire procedure, including non-mendenhall portions, and during the administration and monitoring of Moderate Sedation. Scope In: 11:16:19 AM Scope Out: 11:27:06 AM MD Elaina Nguyen MD 09/22/2021 11:28:24 AM This report has been signed electronically by Elaina Puentes MD Number of Addenda: 0 Note Initiated On: 09/22/2021 11:10 AM Elaina Puentes MD DIGESTIVE DISEASE Final Resu lt from Last 3 Months or Most Recently Relevant to Health [place] [address] [employer]AGE O Member Subscriber Plan / Payer (Ef fective 2020-Present) Name:Lakshmi Candelaria Relation to Subscriber:Self Name:Lakshmi Candelaria Payer ID:[id number] (NA) Group ID:[id number] Type:HMO Address: [address] Care Teams Health Promotion Educator Relationship Specialty Start Date End Date Elisabeth Edwards MD [address] [facility] [place] [address] PCP - General Family Medicine 03/20/18 Jesus Waters MD [address] [place] [address] Neurology 04/12/22
--- OUTSIDE RECORDS SUMMARY | 2024-08-20 16:52 | XMS_ITS | Encounter Summary ---
Author Organization [facility] Address [address] [place] [address] Care Team Providers Care Dirt Supervisor Name Role Phone Elisabeth Edwards MD Primary Care Provider Jesus Waters MD Unavailable [phone] Source Comments In the event this information is protected by the Federal Confidentiality of Alcohol and Drug AbusePatient Records regulations: The Federal rules restrict any use of the information to criminally investigate or prosecute any alcohol or drug abuse patient.[facility] Encounter Details Date Type Department Care Team (Late st Contact Info) Description 11/22/2021 Patient Msg BMI [facility] [address] [place], [place] [id number] Provider, Ccf Nutrition Summary Social History Tobacco Use Types Packs/Day Years Used Date Smoking Tobacco: Former Cigarettes 1 13 1 5 - 1987 Smokeless Tobacco: Never Alcohol Use Standard Drinks/Week Comments No 0 (1 standard drink = 0.6 oz pur e alcohol) Social Connection and Isolat ion Panel [NHANES] Answer Date Recorded In a typical week, how many times do you talk on the phone with family, friends, or neighbors? Three times a week 10/06/2019 How often do you get togethe r with friends or relatives? Twice a week 10/06/2019 How often do you attend chur ch or jain services? More than 4 times per year 10/06/2019 Do you belong to any clubs o r organizations such as episcopal groups, unions, fraternal or athletic groups, or school groups? Yes 10/06/2019 How often do you attend meet ings of the clubs or organizations you belong to? More than 4 times per year 10/06/2019 Are you , , di vorced, , never , or living with a partner? 10/06/2019 AUDIT-C Answer Date Recorded Q1: How often do you have a drink containing alc ohol? Never 12/29/2019 Average Number of Drinks Not on file 020 Q3: How often do you have si x or more drinks on one occasion? Never 12/29/2019 Overall Financial Resource Strain (CARDIA) Answe r Date Recorded How hard is it for you to pa y for the very basics like food, housing, medical care, and heating? Somewhat hard 10/06/2019 PHQ-2 Answer Date Recorded PHQ-2 score 1 10/02/2019 [facility] of Occupat ional Health - Occupational Stress Questionnaire Answer Date Recorded Do you feel stress - tense, restless, nervous, or anxious, or unable to sleep at night because your mind is troubled all the time - these days? Only a little 10/06/2019 Exercise Vital Sign Answer Date Recorde d On average, how many days pe r week do you engage in moderate to strenuous exercise (like a brisk walk)? 6 days 10/06/2019 On average, how many minutes do you engage in exercise at this level? 80 min 10/06/2019 Hunger Vital Sign Answer Date Recorded Within the past 12 months, y ou worried that your food would run out before you got the money to buy more. Never true 10/06/19 20 Within the past 12 months, t he food you bought just didn't last and you didn't have money to get more. Never true 10/06/2019 Housing Stability Vital Sign Answer Antony e Recorded In the last 12 months, was t here a time when you were not able to pay the mortgage or rent on time? No 10/06/2019 In the last 12 months, how many places have you lived? 2 10/06/2019 In the last 12 months, was t here a time when you did not have a steady place to sleep or slept in a longterm (including now)? No 10/06/2019 Area Deprivation Index Answer Date Chi rded National Score (1-100), lower number is lower ri sk Not on file 01/25/2020 State Score (1-10), lower number is lower risk N ot on file 01/25/2020 Data from: https://www.neighborhoodatlas.medicine.[facility]/. Last address used for calculation Not on file 01/25/2020 Education Answer Date Recorded What is the highest level of school you have completed or the highest degree you have received? GED or equivalent Comments No Sex and Gender Information Value Date Recorded Sex Assigned at Not on file Legal Sex Female 1:12 PM EDT Gender Identity Not on file Sexual Orientation Not on file COVID-19 Exposure Response Date Recorded In the last 10 days, have yo u been in contact with someone who was confirmed or suspected to have Coronavirus/COVID-19? No / Unsure 10/31/2021 10:11 AM EDT documented as of this encounter Functional Status [...] 2:00 PM EDT Office Visit Endocrinology [address] [facility] [place] [address] Sima Paz APRN.CRAYON SAWYER [address] [facility] [place] [address] Return in about 6 months (around 12/05/2024). 01/20/2025 9:20 AM EST Office Visit Kidney Medicine [address] [place] [address] Jose Matthews MD [address] [place], [place] [id number] 6 month follow up 04/10/2025 9:30 AM EST Office Visit Cardiology [address] [facility] [place] [address] Aleksandar De La Garza DO [address] [facility] [place] [address] 1 year follow up 06/26/2025 10:15 AM EDT Office Visit OPHT Ophthalmology [address] [facility] [place] [address] Keo Hadley S, OD [address] [place] [address] Annual Full Eye Exam with mac OCT documented as of this encounter Visit Diagnoses Not on filedocumented in this encounter Care Teams Dirt Supervisor Relationship Specialty Start Date End Date Elisabeth Edwards MD [address] [place] [phone] PCP - General Family Medicine 03/20/18 Jesus Waters MD [address] [place] [address] Neurology 04/12/22 documented as of this encounter
--- OUTSIDE RECORDS SUMMARY | 2024-08-20 16:52 | XMS_ITS | Encounter Summary ---
Author Organization [facility] Address [address] [place] [address] Care Team Providers Care Patient Care Director Name Role Phone Elisabeth Edwards MD Primary Care Provider [phone] Elisabeth Edwards MD Primary Care Provider [phone] Encounter Details Date Type Department Care Team (Late st Contact Info) Description 06/11/2023 External Result Encounter [facility] Unsolicited Yovanny He, DO [address] [address] Social History Tobacco Use Types Packs/Day Years Used Date Smoking Tobacco: Former Cigarettes Q uit: 1986 Smokeless Tobacco: Never Alcohol Use Standard Drinks/Week Comments Never 0 (1 standard drink = 0.6 oz pur e alcohol) Caffiene use: Coffee, Soda Comments Unknown Sex and Gender Information Value Date Recorded Sex Assigned at Not on file Legal Sex Female 6:50 PM EDT Gender Identity Not on file Sexual Orientation Not on file documented as of this encounter Plan of Treatment Upcoming Encounters Date Type Department Care Team (Late st Contact Info) Description 07/23/2025 10:30 AM EDT Office Visit [facility] [address] [address] Yovanny He DO [address] [address] documented as of this encounter Procedures Procedure Name Priority Date/Time Associated Diagnosis Comments BI MAMMOGRAM DIAGNOSTIC LEFT 06/11/2023 1:04 PM EDT documented in this encounter Results * Left diagnostic mammogram (06/11/2023 1:04 PM EDT) Anatomical Region Laterality Modality Breast Left Mammography 06/11/2023 1:04 PM EDT Impressions 06/11/2023 1:41 PM EDT STATUS POST ULTRASOUND-GUIDED BIOPSY OF A HYPOECHOIC NODULE AT THE UPPER OUTER LEFT BREAST. Impression dictated by: Crystal Stack M.D.06/11/2023 1:29 PM Dictation Location: [facility] Tech: Miya Elizondo; Ashley Leggett Transcribed By: KIRA 06/11/23 1329 Dictated By: Crystal Stack MD 06/11/23 1304 Signed By: <Electronically signed by MD Crystal Stack in OV> 06/11/23 1329 Narrative 06/11/2023 1:41 PM EDT [facility] Main Tiger [address] [place] [address] Ultrasound Report Signed with Addenda Patient: Lakshmi Candelaria MR#: [id number] 031 : 1960 Acct:[id number] Age/Sex: 62 / F ADM Date: 06/11/23 Loc: [facility] Room: Type: [facility] Attending Dr: Yovanny He DO Ordering Provider: Yovanny He DO Date of Service: 06/11/23 US/US breast ndl core biopsy LT: R92.8 ([id number]) MM/MM post biopsy LT w/CAD: POST U/S BX WITH CLIP Copies to: Yovanny He DO ADDENDUM 1 Patient's pathology results for the left breast lesion at 2:00 show sclerosing adenosis with associated calcifications. There is also dense stromal fibrosis suggesting possible scar tissue. No atypia or malignancy was described. This is probably concordant. Short interval ultrasound follow-up in 6 months could be considered. Impression dictated by: Crystal Stack M.D.06/15/2023 10:46 AM Dictation Location: [place] [address] Addendum Dictated By: MD Crystal Stack Addendum Signed By: <Electronically signed by MD Crystal Stack in OV> 06/15/231045 Addendum Cosigned By: DD/ TD/TT: 06/15/23 ULTRASOUND-GUIDED LEFT BREAST BIOPSY WITH VACUUM ASSISTANCE CLINICAL DATA: Hypoechoic left breast nodule on outside workup. Patient's previous imaging from May 2023 was reviewed. The procedure was discussed with the patient and consent was obtained. Ultrasound survey at the upper outer left breast shows a hypoechoic nodular area at 2:00, 9 cm from the nipple. Following sterile preparation and local anesthesia with lidocaine, a 12-gauge vacuum-assisted needle was advanced through the area under direct ultrasound visualization. The area started to collapse immediately. Sampling was performed and the lesion disappeared quickly. This suggests that the abnormality is likely complex cystic. Following sampling, a biopsy marking clip was placed. There were no immediate complications. DIAGNOSTIC LEFT MAMMOGRAM - full Field digital Craniocaudal and true lateral views of the left breast were obtained using low- dose digital technique. Comparison is made to previous mammograms from March 30, 2021 through May 28, 2023. There is moderate residual fibroglandular tissue. There are scattered benign as well as vascular calcifications. There is a new biopsy marking clip at the central lateral breast. The lesion biopsied was diagnosed on ultrasound and was not well seen on previous mammograms. US/US breast ndl core biopsy LT Procedure Note Radiology, Radiologist, - 06/15/2023 [facility] Main [place] [address] [place] [address] Ultrasound Report Signed with Addenda Patient: Andrew Candelaria#: [id number] : 1960cct:[id number] Age/Sex: 62 / FADM Date: 06/11/23 Loc: [facility] Room:Type: [facility] Attending Dr: Yovanny He DO Ordering Provider: Yovanny He DO Date of Service: 06/11/23 US/US breast ndl core biopsy LT: R92.8 ([id number]) MM/MM post biopsy LT w/CAD: POST U/S BX WITH CLIP Copies to: Yovanny He DO ADDENDUM 1 Patient's pathology results for the left breast lesion at 2:00 showsclerosing adenosis with associated calcifications. There is also dense stromal fibrosis suggestingpossible scar tissue. No atypia or malignancy was described. This is probably concordant. Shortinterval ultrasound follow-up in 6 months could be considered. Impression dictated by: Crystal Stack M.D.06/15/2023 10:46 AM Dictation Location: [place] [address] Addendum Dictated By: MD Crystal Stack Addendum Signed By: <Electronically signed by MD Crystal Valente in OV> 06/15/231045 Addendum Cosigned By: DD/ TD/TT: 06/15/23 ULTRASOUND-GUIDED LEFT BREAST BIOPSY WITH VACUUM ASSISTANCE CLINICAL DATA: Hypoechoic left breast nodule on outside workup. Patient's previous imaging from May 2023 was reviewed. The procedure wasdiscussed with the patient and consent was obtained. Ultrasound survey at the upper outerleft breast shows a hypoechoic nodular area at 2:00, 9 cm from the nipple. Following sterilepreparation and local anesthesia with lidocaine, a 12-gauge vacuum-assisted needle was advancedthrough the area under direct ultrasound visualization. The area started to collapse immediately.Sampling was performed and the lesion disappeared quickly. This suggests that the abnormality islikely complex cystic. Following sampling, a biopsy marking clip was placed. There were noimmediate complications. DIAGNOSTIC LEFT MAMMOGRAM - full Field digital Craniocaudal and true lateral views of the left breast were obtained usinglow- dose digital technique. Comparison is made to previous mammograms from March 30, 2021through May 28, 2023. There is moderate residual fibroglandular tissue. There are scatteredbenign as well as vascular calcifications. There is a new biopsy marking clip at the central lateralbreast. The lesion biopsied was diagnosed on ultrasound and was not well seen on previousmammograms. US/US breast ndl core biopsy LT IMPRESSION: STATUS POST ULTRASOUND-GUIDED BIOPSY OF A HYPOECHOIC NODULE AT THE UPPEROUTER LEFT BREAST. Impression dictated by: Crystal Stack M.D.06/11/2023 1:29 PM Dictation Location: [facility] Tech: Miya Elizondo; Ashley Leggett Transcribed By: KIRA 06/11/23 1329 Dictated By: Crystal Stack MD 06/11/23 1304 Signed By: <Electronically signed by MD Crystal Stack in OV> 06/11/23 1329 Yovanny He DO IMG BI PROCEDURES Edited Result - Final documented in this encounter Visit Diagnoses Not on filedocumented in this encounter Care Teams Patient Care Director Relationship Specialty Start Date End Date Elisabeth Edawrds MD PCP - General Family Medicine 08/04/22 07/03/24 Elisabeth Edwards MD [address] [place] [phone] PCP - General Family Medicine 07/04/24 documented as of this encounter
--- OUTSIDE RECORDS SUMMARY | 2024-08-20 16:52 | XMS_ITS | Encounter Summary ---
Author Organization [facility] Address [address] [place] [address] Care Team Providers Care Psychologist Social Name Role Phone Elisabeth Edwards MD Primary Care Provider [phone] Jesus Waters MD Unavailable [phone] Source Comments In the event this information is protected by the Federal Confidentiality of Alcohol and Drug AbusePatient Records regulations: The Federal rules restrict any use of the information to criminally investigate or prosecute any alcohol or drug abuse patient.[facility] Encounter Details Date Type Department Care Team (Late st Contact Info) Description 05/04/2022 Patient Msg Physical Therapy [address] [place] [address] Provider, Ccf Appointment Cancellation Social History Tobacco Use Types Packs/Day Years Used Date Smoking Tobacco: Former Cigarettes 1 13 5 - 1987 Smokeless Tobacco: Never Alcohol Use Standard Drinks/Week Comments No 0 (1 standard drink = 0.6 oz pur e alcohol) Social Connection and Isolation Panel [NHANES] A nswer Date Recorded In a typical week, how many times do you talk on the phone with family, friends, or neighbors? Three times a week 12/29/20 22 How often do you get togethe r with friends or relatives? Three times a week 02/16/2022 How often do you attend chur ch or shinto services? 1 to 4 times per year 02/16/2022 Do you belong to any clubs o r organizations such as caodaism groups, unions, fraternal or athletic groups, or [...] 02/16/2022 PHQ-2 Answer Date Recorded PHQ-2 score 3 02/16/2022 [facility] of Occupat ional Health - Occupational Stress [...] place to sleep or slept in a halfway (including now)? No 02/16/2022 Area Deprivation Index Answer Date Chi rded National Score (1-100), lower number is lower ri sk 91 03/18/2022 State Score (1-10), lower number is lower risk N ot on file 03/18/2022 Data from: https://www.neighborhoodatlas.medicine.[facility].edu/. Last address used for calculation [address] 03/18/2022 Education Answer Date Recorded What is the [...] 2:00 PM EDT Office Visit Endocrinology [address] [place] [address] Sima Paz APRN.MANAGER AUTOMOTIVE [address] [facility] [place] [address] Return in about 6 months (around 12/05/2024). 01/20/2025 9:20 AM EST Office Visit Kidney Medicine [address] [place] [address] Jose Matthews MD [address] [place] [address] 6 month follow up 04/10/2025 9:30 AM EST Office Visit Cardiology [address] [place] [address] Aleksandar De La Garza DO [address] [facility] [place] [address] 1 year follow up 06/26/2025 10:15 AM EDT Office Visit OPHT Ophthalmology [address] [place] [address] Keo Hadley, OD [address] [facility] [place] [address] Annual Full Eye Exam with mac OCT documented as of this encounter Visit Diagnoses Not on filedocumented in this encounter Care Teams Psychologist Social Relationship Specialty Start Date End Date Elisabeth Edwards MD [address] [place] [address] PCP - General Family Medicine 03/20/18 Jesus Waters MD [address] [place] [address] Neurology 04/12/22 documented as of this encounter
--- OUTSIDE RECORDS SUMMARY | 2024-08-20 16:52 | XMS_ITS | Encounter Summary ---
Author Organization [facility] Address [address] [place] [address] Care Team Providers Care Heritage Consultant Name Role Phone Elisabeth Edwards MD Primary Care Provider [phone] Jesus Waters MD Unavailable [phone] Source Comments In the event this information is protected by the Federal Confidentiality of Alcohol and Drug AbusePatient Records regulations: The Federal rules restrict any use of the information to criminally investigate or prosecute any alcohol or drug abuse patient.[facility] Encounter Details Date Type Department Care Team (Late st Contact Info) Description 03/19/2023 Patient Msg [facility] [address] [place] [address] Follow up Social History Tobacco Use Types Packs/Day Years [...] often do you attend chur ch or buddhist services? 1 to 4 times per year 02/16/2022 Do you belong to any clubs o r organizations such as baptist groups, unions, fraternal or athletic groups, or [...] Answer Date Recorded PHQ-2 score 1 12/17/2022 [facility] Occupat ional Health - [...] place to sleep or slept in a fdc (including now)? No 02/16/2022 Area Deprivation Index Answer Date Chi rded National Score (1-100), lower number is lower ri sk 86 06/30/2022 State Score (1-10), lower number is lower risk 8 06/30/2022 Data from: https://www.neighborhoodatlas.medicine.[facility].edu/. Last address used for calculation [address] [...] Bryce Licona RN documented in this encounter Plan of Treatment Upcoming Encounters Date Type Department Care Team (Latest Contact Info) Description 12/05/2024 2:00 PM EDT Office Visit Endocrinology [address] [facility] [place] [address] Sima Paz APRN.ASSISTANT PROPERTY MANAGER [address] [facility] [facility] [place] [address] Return in about 6 months (around 12/05/2024). 01/20/2025 9:20 AM EST Office Visit Kidney Medicine [address] [place] [address] Jose Matthews MD [address] [place], [place] [phone] 6 month follow up 04/10/2025 9:30 AM EST Office Visit Cardiology [address] [facility] [place] [address] Aleksandar De La Garza DO [address] [facility] [place] [address] 1 year follow up 06/26/2025 10:15 AM EDT Office Visit [facility]hthalmology [address] [facility] [place] [address] Keo Hadley, OD [address] [place] [address] Annual Full Eye Exam with mac OCT documented as of this encounter Visit Diagnoses Not on filedocumented in this encounter Care Teams Heritage Consultant Relationship Specialty Start Date End Date Elisabeth Edwards MD [address] [place] [address] PCP - General Family Medicine 03/20/18 Jesus Waters MD [address] [place] [address] Neurology 04/12/22 documented as of this encounter
--- OUTSIDE RECORDS SUMMARY | 2024-08-20 16:52 | XMS_ITS | Encounter Summary ---
Author Organization [facility] Address [address] [place] [address] Care Team Providers Care Digital Forensics Investigator Name Role Phone Elisabeth Edwards MD Primary Care Provider [phone] Jesus Waters MD Unavailable [phone] Source Comments In the event this information is protected by the Federal Confidentiality of Alcohol and Drug AbusePatient Records regulations: The Federal rules restrict any use of the information to criminally investigate or prosecute any alcohol or drug abuse patient.[facility] Encounter Details Date Type Department Care Team (Late st Contact Info) Description 01/17/2021 Get Medical Advice Gastroenterology [address] [address] Sarah Forrester APRN.[facility] [address] [place] [address] Cinnamon taste in my mouth Social History Tobacco Use Types Packs/Day Years Used Date Smoking Tobacco: Former Cigarettes 1 13 1 975 - 1987 Smokeless Tobacco: Never Alcohol Use [...] often do you attend chur ch or caodaism services? More than 4 times per year 10/06/2019 Do you belong to any clubs o r organizations such as sikh groups, unions, fraternal or athletic groups, or [...] Answer Date Recorded PHQ-2 score 1 10/02/2019 [facility] of Occupat ional Health - Occupational [...] place to sleep or slept in a nursing home (including now)? No 10/06/2019 Area Deprivation Index Answer Date Chi rded National Score (1-100), lower number is lower ri sk Not on file 01/25/2020 State Score (1-10), lower number is lower risk N ot on file 01/25/2020 Data from: https://www.neighborhoodatlas.medicine.[facility].edu/. Last address used for calculation Not on [...] PM EDT Office Visit Endocrinology [address] [place] [address] Sima Paz APRN.CREATIVE WRITING PROFESSOR [address] [place] [place] [address] Return in about 6 months (around 12/05/2024). 01/20/2025 9:20 AM EST Office Visit Kidney Medicine [address] [place] [address] Jose Matthews MD [address] [place], [place] [phone] 6 month follow up 04/10/2025 9:30 AM EST Office Visit Cardiology [address] [place] [address] Aleksandar De L aGarza, [address] [place] [address] 1 year follow up 06/26/2025 10:15 AM EDT Office Visit OPHT Ophthalmology [address] [place] [address] Keo Hadley S, OD [address] [place] [address] Annual Full Eye Exam with mac OCT documented as of this encounter Visit Diagnoses Not on filedocumented in this encounter Care Teams Digital Forensics Investigator Relationship Specialty Start Date End Date Elisabeth Edwards MD [address] [place] [phone] PCP - General Family Medicine 03/20/18 Jesus Waters MD [address] [place] [address] Neurology 04/12/22 documented as of this encounter
--- OUTSIDE RECORDS SUMMARY | 2024-08-20 16:52 | XMS_ITS | Encounter Summary ---
Author Organization [facility] Address [address] [place] [address] Care Team Providers Care Special Forces Senior Sergeant Name Role Phone Elisabeth Edwards MD Primary Care Provider [phone] Jesus Waters MD Unavailable [phone] Source Comments In the event this information is protected by the Federal Confidentiality of Alcohol and Drug AbusePatient Records regulations: The Federal rules restrict any use of the information to criminally investigate or prosecute any alcohol or drug abuse patient.[facility] Encounter Details Date Type Department Care Team (Late st Contact Info) Description 10/04/2020 Patient [facility] Kidney Medicine [facility] [address] [phone] Provider, Cc Research study Social History Tobacco Use Types Packs/Day Years [...] often do you attend chur ch or anglican services? More than 4 times per year 10/06/2019 Do you belong to any clubs o r organizations such as scientology groups, unions, fraternal or athletic groups, or [...] Answer Date Recorded PHQ-2 score 1 10/02/2019 [facility] of Occupat ional Health - Occupational [...] place to sleep or slept in a group home (including now)? No 10/06/2019 Area Deprivation Index Answer Date Chi rded National Score (1-100), lower number is lower ri sk Not on file 01/25/2020 State Score (1-10), lower number is lower risk N ot on file 01/25/2020 Data from: https://www.neighborhoodatlas.medicine.[facility]/. Last address used for calculation Not on [...] Exposure Response Date Recorded In the last month, have you been in contact with someone who was confirmed or suspected to have Coronavirus / COVID-19? Yes 10/05/2020 9:31 AM EDT documented as of this encounter [...] 2:00 PM EDT Office Visit Endocrinology [address] [place] [address] Sima Paz, REJI.MONEY EXAMINER [address] [place] [address] Return in about 6 months (around 12/05/2024). 01/20/2025 9:20 AM EST Office Visit Kidney Medicine [address] [place] [address] Jose Matthews MD [address] [place], [place] [address] 6 month follow up 04/10/2025 9:30 AM EST Office Visit Cardiology [address] [place] [address] Aleksandar De La Garza, [address] [facility] [address] [place] [address] 1 year follow up 06/26/2025 10:15 AM EDT Office Visit OPHT Ophthalmology [address] [place] [address] Keo Had[place] S, OD [address] [place] [address] Annual Full Eye Exam with mac OCT documented as of this encounter Visit Diagnoses Not on filedocumented in this encounter Care Teams Special Forces Senior Sergeant Relationship Specialty Start Date End Date Elisabeth Edwards MD [address] [place] [address] PCP - General Family Medicine 03/20/18 Jesus Waters MD [address] [place] [address] Neurology 04/12/22 documented as of this encounter
--- OUTSIDE RECORDS SUMMARY | 2024-08-20 16:52 | XMS_ITS | Encounter Summary ---
Author Organization [facility] Address [address] [place] [address] Care Team Providers Care Cash Specialist Name Role Phone Elisabeth Edwards MD Primary Care Provider [phone] Elisabeth Edwards MD Primary Care Provider [phone] Encounter Details Date Type Department Care Team (Late st Contact Info) Description 05/30/[address] [facility] [address] [place] [address] Yovanny He, DO [address] [phone] Social History Tobacco Use Types Packs/Day Years [...] EDT Office Visit [facility] [address] [place] [phone] Yovanny He, DO [address] [facility] [address] [place] [address] documented as of this encounter Procedures Procedure Name Priority Date/Time Associated Diagnosis Comments US BREAST LIMITED EDILMA Routine 05/30/2023 9:14 AM EDT documented in this encounter Results * US BREAST LIMITED EDILMA (05/30/2023 9:14 AM EDT) Anatomical Region Laterality Modality Radiographic Sandra ging Yovanny He DO IMG XR PROCEDURES Final R esult documented in this encounter Visit Diagnoses Not on filedocumented in this encounter Care Teams Cash Specialist Relationship Specialty Start Date End Date Elisabeth Edwards MD PCP - General Family Medicine 08/04/22 07/03/24 Elisabeth Edwards MD [address] [place] [phone] PCP - General Family Medicine 07/04/24 documented as of this encounter
--- OUTSIDE RECORDS SUMMARY | 2024-08-20 16:52 | XMS_ITS | Encounter Summary ---
Author Organization [facility] Address [address] [place] [address] Care Team Providers Care Front Office Associate Name Role Phone Elisabeth Edwards MD Primary Care Provider [phone] Jesus Waters MD Unavailable [phone] Source Comments In the event this information is protected by the Federal Confidentiality of Alcohol and Drug AbusePatient Records regulations: The Federal rules restrict any use of the information to criminally investigate or prosecute any alcohol or drug abuse patient.[facility] Encounter Details Date Type Department Care Team (Late st Contact Info) Description 11/21/2022 [place] [address] Provider, [facility] MRI Screening Questionnaire Completion Required Social History Tobacco Use Types Packs/Day Years [...] or neighbors? Three times a week 02/17/20 22 How often do you get togethe r with friends or relatives? Three times a week 02/16/2022 How often do you attend chur ch or religion services? 1 to 4 times per year [...] 02/16/2022 PHQ-2 Answer Date Recorded PHQ-2 score 0 07/27/2022 [facility] of Occupat ional Health - [...] place to sleep or slept in a long term (including now)? No 02/16/2022 Area Deprivation Index Answer Date Chi rded National Score (1-100), lower number is lower ri sk 86 06/30/2022 State Score (1-10), lower number is lower risk 8 06/30/2022 Data from: https://www.neighborhoodatlas.medicine.[facility].edu/. Last address used for calculation [address] 06/30/2022 Education Answer Date Recorded What is [...] 2:00 PM EDT Office Visit Endocrinology [address] [place] [address] Sima Paz APRN.PAPER BAG MAKER [address] [place] [address] Return in about 6 months (around 12/05/2024). 01/20/2025 9:20 AM EST Office Visit Kidney Medicine [address] [place] [address] Jose Matthews MD [address] [place] [address] 6 month follow up 04/10/2025 9:30 AM EST Office Visit Cardiology [address] [facility] [address] Aleksandar De La Garza DO [address] [place] [address] 1 year follow up 06/26/2025 10:15 AM EDT Office Visit OPHT Ophthalmology [address] [place] [address] Keo Hadley, OD [address] [place] [address] Annual Full Eye Exam with mac OCT documented as of this encounter Visit Diagnoses Not on filedocumented in this encounter Care Teams Front Office Associate Relationship Specialty Start Date End Date Elisabeth Edwards MD [address] [place] [phone] PCP - General Family Medicine 03/20/18 Jesus Waters MD [address] [place] [address] Neurology 04/12/22 documented as of this encounter
--- OUTSIDE RECORDS SUMMARY | 2024-08-20 16:52 | XMS_ITS | Encounter Summary ---
Author Organization [facility] Address [address] [place] [address] Care Team Providers Care Tail Ripper Name Role Phone Elisabeth Edwards MD Primary Care Provider [phone] Jesus Waters MD Unavailable [phone] Source Comments In the event this information is protected by the Federal Confidentiality of Alcohol and Drug AbusePatient Records regulations: The Federal rules restrict any use of the information to criminally investigate or prosecute any alcohol or drug abuse patient.[facility] Encounter Details Date Type Department Care Team (Late st Contact Info) Description 09/28/2021 Get Medical Advice General Surgery [address] [place] [address] Billy Mcgrath, DO [address] [facility] [address] [place] [address] Question regarding BASIC METABOLIC PNL Social History Tobacco Use Types Packs/Day Years [...] often do you attend chur ch or bahai services? More than 4 times per year 10/06/2019 Do you belong to any clubs o r organizations such as advent groups, unions, fraternal or athletic groups, or [...] Answer Date Recorded PHQ-2 score 1 10/02/2019 [facility] Occupational Stress Questionnaire Answer [...] place to sleep or slept in a retirement (including now)? No 10/06/2019 Area Deprivation Index Answer Date Chi rded National Score (1-100), lower number is lower ri sk Not on file 01/25/2020 State Score (1-10), lower number is lower risk N ot on file 01/25/2020 Data from: https://www.neighborhoodatlas.medicine.[facility].edu/. Last address used for calculation Not on [...] suspected to have Coronavirus/COVID-19? No / Unsure 09/22/2021 10:38 AM EDT documented as of this encounter [...] 2:00 PM EDT Office Visit Endocrinology [address] [facility] [place] [address] Sima Paz, REJI.DATA INTEGRATION ARCHITECT [address] [place] [address] Return in about 6 months (around 12/05/2024). 01/20/2025 9:20 AM EST Office Visit Kidney Medicine [address] [place] [address] Jose Matthews MD [address] [place] [address] 6 month follow up 04/10/2025 9:30 AM EST Office Visit Cardiology [address] [facility] [place] [address] Aleksandar De La Garza DO [address] [facility] [place] [address] 1 year follow up 06/26/2025 10:15 AM EDT Office Visit OPHT Ophthalmology [address] [facility] [place] [address] Keo Hadley, OD [address] [place] [address] Annual Full Eye Exam with mac OCT documented as of this encounter Visit Diagnoses Not on filedocumented in this encounter Care Teams Tail Ripper Relationship Specialty Start Date End Date Elisabeth Edwards MD [address] [place] [phone] PCP - General Family Medicine 03/20/18 Jesus Waters MD [address] [place] [address] Neurology 04/12/22 documented as of this encounter
--- OUTSIDE RECORDS SUMMARY | 2024-08-20 16:52 | XMS_ITS | Clinical Summary ---
Author Organization [facility] Address [address] [place] [address] Care Team Providers Care Teacher Associate Name Role Phone Unavailable Primary Care Provider Unavailabl e Social History Tobacco Use Types Packs/Day Years Used Date Smoking Tobacco: Never Assessed Comments Unknown Sex and Gender Information Value Date Recorded Sex Assigned at Not on file Legal Sex Female 9:44 PM EDT Gender Identity Not on file Sexual Orientation Not on file Plan of Treatment Not on file
--- OUTSIDE RECORDS SUMMARY | 2024-08-20 16:52 | XMS_ITS | Encounter Summary ---
Author Organization [facility] Address [address] [place] [address] Care Team Providers Care Order To Delivery Supervisor Name Role Phone Elisabeth Edwards MD Primary Care Provider [phone] Jesus Waters MD Unavailable [phone] Source Comments In the event this information is protected by the Federal Confidentiality of Alcohol and Drug AbusePatient Records regulations: The Federal rules restrict any use of the information to criminally investigate or prosecute any alcohol or drug abuse patient.[facility] Encounter Details Date Type Department Care Team (Late st Contact Info) Description 06/06/2024 Results Follow-Up Endocrinology [address] [place] [address] Sima Paz APRN.BILLING ADJUDICATOR [address] [place] [place] [phone] Social History Tobacco Use Types Packs/Day Years Used Date Smoking Tobacco: Former Cigarettes 1 13 0 06/25/2010 - 06/26/2023 Smokeless Tobacco: Never Alcohol Use Standard Drinks/Week [...] any clubs o r organizations such as episcopalian groups, unions, fraternal or athletic groups, or [...] Answer Date Recorded PHQ-2 score 1 01/03/2024 [facility] - Occupational Stress Questionnaire Answer Date Recorded [...] in a nursing home (including now)? No 02/16/2022 Area Deprivation Index Answer Date Chi rded National Score (1-100), lower number is lower ri sk 86 06/30/2022 State Score (1-10), lower number is lower risk 8 06/30/2022 Data from: https://www.neighborhoodatlas.medicine.[facility].edu/. Last address used for calculation [address] [...] 06/26/2018 10:19 AM EDT Bryce Gilliam RN * Because of a physical, mental, [...] 2:00 PM EDT Office Visit Endocrinology [address] [facility] [place] [address] Sima Paz, REJI.BILLING ADJUDICATOR [address] [facility] [place] [address] Return in about 6 months (around 12/05/2024). 01/20/2025 9:20 AM EST Office Visit Kidney Medicine [address] [place] [address] Jose Matthews MD [address] [place] [address] 6 month follow up 04/10/2025 9:30 AM EST Office Visit Cardiology [address] [facility] [place] [address] Aleksandar De La Garza DO [address] [facility] [place] [address] 1 year follow up 06/26/2025 10:15 AM EDT Office Visit OPHT Ophthalmology [address] [facility] [place] [address] Keo Hadley, VLAD [address] [facility] [place] [address] Annual Full Eye Exam with mac OCT documented as of this encounter Visit Diagnoses Not on filedocumented in this encounter Care Teams Order To Delivery Supervisor Relationship Specialty Start Date End Date Elisabeth Edwards MD [address] [place] [address] PCP - General Family Medicine 03/20/18 Jesus Waters MD [address] [place] [address] Neurology 04/12/22 documented as of this encounter
--- OUTSIDE RECORDS SUMMARY | 2024-08-20 16:52 | XMS_ITS | Clinical Summary ---
Author Organization [email or web address] Address [id number] [address] [place] [address] Care Team Providers Care Fur Dressing Supervisor Name Role Phone Unavailable Primary Care Provider Unavailabl e Allergies Active Allergy Reactions Criticality Noted Date Comments Gabapentin 11/28/2017 Tramadol 11/28/2017 Medications carvedilol (COREG) 12.5 mg tablet Take 12.5 mg by mouth 2 (two) times a day. 11 8 Active pantoprazole (PROTONIX) 40 mg EC tablet Take 40 mg by mouth daily. 3 8 Active amLODIPine (NORVASC) 10 mg tablet Take 10 mg by mouth daily. 3 8 Active STOOL SOFTENER 100 mg capsule TAKE ONE 1 CAPSULE BY MOUTH TWICE DAILY 3 8 Active NOVOLOG FLEXPEN U-100 INSULIN 100 unit/mL insulin pen INJECT 2 UNITS SUBCUTANEOUSLY BEFORE MEALS 5 8 Active Active Problems Problem Noted Date Diagnosed Date Sensorineural hearing loss (SNHL) of both ears 1 Deviated septum 11/28/2017 Sleep apnea 11/28/2017 Social History Tobacco Use Types Packs/Day Years Used Date Smoking Tobacco: Never Smokeless Tobacco: Never Childcare Answer Date Recorded Childcare Unknown 07/31/2018 Employment Answer Date Recorded Employment Unknown 07/31/2018 Purpose - Life Answer Date Recorded Purpose and direction in life Unknown Comments Unknown Sex and Gender Information Value Date Recorded Sex Assigned at Not on file Legal Sex Female 11:25 AM EDT Gender Identity Not on file Sexual Orientation Not on file Last Filed Vital Signs Vital Sign Reading Time Taken Comments Blood Pressure - - Pulse - - Temperature - - Respiratory Rate - - Oxygen Saturation - - Inhaled Oxygen Concentration - - Weight 78.7 kg (173 lb 9.6 oz) 11/28/2017 2:03 P M EDT Height 154.9 cm (5' 1 ) 11/28/2017 2:03 PM EDT Body Mass Index 32.8 11/28/2017 2:03 PM EDT Plan of Treatment Health Maintenance Due Date Last Done Comments Depression Screening 1972 Tobacco Screening 1972 Adult BMI Screening 1978 DTaP,Tdap and Td Vaccines (1 - Tdap) 12/23/1979 Pap Smear 1981 Zoster (Shingles) Vaccine (1 of 2) 2010 Influenza Vaccine 10/20/2024 Medical Devices Not on file Insurance [place] [employer]
--- OUTSIDE RECORDS SUMMARY | 2024-08-20 16:52 | XMS_ITS | Encounter Summary ---
Author Organization [facility] Address [address] [place] [address] Care Team Providers Care Automobile Spring Repairer Name Role Phone Elisabeth Edwards MD Primary Care Provider [phone] Elisabeth Edwards MD Primary Care Provider [phone] Encounter Details Date Type Department Care Team (Late st Contact Info) Description 12/23/2020 Abstract [facility] [address] [place] [phone] Kiana Hurt, [facility] [address] [place] [address] Social History Tobacco Use Types Packs/Day Years [...] EDT Office Visit [facility] [address] [phone] Yovanny He DO [address] [facility] [address] [place] [address] documented as of this encounter Visit Diagnoses Not on filedocumented in this encounter Care Teams Automobile Spring Repairer Relationship Specialty Start Date End Date Elisabeth Edwards MD PCP - General Family Medicine 08/04/22 07/03/24 Elisabeth Edwards MD [address] [place] [phone] PCP - General Family Medicine 07/04/24 documented as of this encounter
--- OUTSIDE RECORDS SUMMARY | 2024-08-20 16:52 | XMS_ITS | Encounter Summary ---
Author Organization [facility] Address [address] [place] [address] Care Team Providers Care Photography Instructor Name Role Phone Elisabeth Edwards MD Primary Care Provider [phone] Jesus Waters MD Unavailable [phone] Source Comments In the event this information is protected by the Federal Confidentiality of Alcohol and Drug AbusePatient Records regulations: The Federal rules restrict any use of the information to criminally investigate or prosecute any alcohol or drug abuse patient.[facility] Encounter Details Date Type Department Care Team (Late st Contact Info) Description 07/10/2023 Patient Msg Kidney Medicine [address] [place] [address] Day Valle APRN.[facility] [address] [facility] [address] [place] [id number] Lab results Social History Tobacco Use Types Packs/Day Years [...] you attend chur ch or jain services? 1 to 4 times per year 02/16/2022 Do you belong to any clubs o r organizations such as protestant groups, unions, fraternal or athletic groups, or [...] PHQ-2 Answer Date Recorded PHQ-2 score 1 03/26/2023 [facility] - Occupational Stress Questionnaire Answer Date Recorded [...] place to sleep or slept in a prison (including now)? No 02/16/2022 Area Deprivation Index Answer Date Chi rded National Score (1-100), lower number is lower ri sk 86 06/30/2022 State Score (1-10), lower number is lower risk 8 06/30/2022 Data from: https://www.neighborhoodatlas.medicine.[facility].edu/. Last address used for calculation [address] [...] 2:00 PM EDT Office Visit Endocrinology [address] [place] [address] Sima Paz APRN.VALUE ENGINEER [address] [place] [address] Return in about 6 months (around 12/05/2024). 01/20/2025 9:20 AM EST Office Visit Kidney Medicine [address] [place] [address] Jose Matthews MD [address] [place], [place] [phone] 6 month follow up 04/10/2025 9:30 AM EST Office Visit Cardiology [address] [facility] [place] [address] Aleksandar De La Garza DO [address] [facility] [address] [facility] [place] [address] 1 year follow up 06/26/2025 10:15 AM EDT Office Visit OPHT Ophthalmology [address] [facility] [place] [address] Keo Hadley, VLAD [address] [place] [address] Annual Full Eye Exam with mac OCT documented as of this encounter Visit Diagnoses Not on filedocumented in this encounter Care Teams Photography Instructor Relationship Specialty Start Date End Date Elisabeth Edwards MD [facility] [place] [phone] PCP - General Family Medicine 03/20/18 Jesus Waters MD [address] [place] [address] Neurology 04/12/22 documented as of this encounter
--- OUTSIDE RECORDS SUMMARY | 2024-08-20 16:52 | XMS_ITS | Encounter Summary ---
Author Organization [facility] Address [address] [place] [address] Care Team Providers Care Practicing Dermatologist Name Role Phone Elisabeth Edwards MD Primary Care Provider [phone] Jesus Waters MD Unavailable [phone] Source Comments In the event this information is protected by the Federal Confidentiality of Alcohol and Drug AbusePatient Records regulations: The Federal rules restrict any use of the information to criminally investigate or prosecute any alcohol or drug abuse patient.[facility] Encounter Details Date Type Department Care Team (Latest Contact Info) Description 11/29/2022 H&P External-NonCCF Provider, Deniz, VIVIAN Do not enter address information under generic External Provider. Social History Tobacco Use Types Packs/Day Years [...] often do you attend chur ch or anabaptist services? 1 to 4 times per year 02/16/2022 Do you belong to any clubs o r organizations such as jew groups, unions, fraternal or athletic groups, or [...] Answer Date Recorded PHQ-2 score 0 07/27/2022 [facility] Occupat ional [facility] - Occupational Stress Questionnaire Answer Date [...] is lower risk 8 06/30/2022 Data from: https://www.neighborhoodatlas.medicine.[facility].edu/. Last address used for calculation [address] [...] 2:00 PM EDT Office Visit Endocrinology [address] [facility] [place] [address] Sima Paz, REJI.QUALITY REVIEW SPECIALIST [address] [address] [place] [address] Return in about 6 months (around 12/05/2024). 01/20/2025 9:20 AM EST Office Visit Kidney Medicine [address] [facility] [place] [address] Jose Matthews MD [address] [place] [address] 6 month follow up 04/10/2025 9:30 AM EST Office Visit Cardiology [address] [facility] [address] [facility] [place] [place] [address] Aleksandar De La Garza DO [address] [facility] [address] [facility] [place] [place] [address] 1 year follow up 06/26/2025 10:15 AM EDT Office Visit OPHT Ophthalmology [address] [facility] [place] [address] Keo Hadley, OD [address] [place] [address] Annual Full Eye Exam with mac OCT documented as of this encounter Visit Diagnoses Not on filedocumented in this encounter Care Teams Practicing Dermatologist Relationship Specialty Start Date End Date Elisabeth Edwards MD [address] [place] [phone] PCP - General Family Medicine 03/20/18 Jesus Waters MD [address] [place] [address] Neurology 04/12/22 documented as of this encounter
--- OUTSIDE RECORDS SUMMARY | 2024-08-20 16:52 | XMS_ITS | Encounter Summary ---
Author Organization [facility] Address [address] [place] [address] Care Team Providers Care Yeast Maker Name Role Phone Elisabeth Edwards MD Primary Care Provider [phone] Jesus Waters MD Unavailable [phone] Source Comments In the event this information is protected by the Federal Confidentiality of Alcohol and Drug AbusePatient Records regulations: The Federal rules restrict any use of the information to criminally investigate or prosecute any alcohol or drug abuse patient.[facility] Encounter Details Date Type Department Care Team (Late st Contact Info) Description 09/25/2023 Patient Msg [facility] [address] [place] [address] Provider, Ccf Appointment Social History Tobacco Use Types Packs/Day Years [...] often do you attend chur ch or scientology services? 1 to 4 times per year 02/16/2022 Do you belong to any clubs o r organizations such as mu-ism groups, unions, fraternal or athletic groups, or [...] Answer Date Recorded PHQ-2 score 1 03/26/2023 [facility] Occup[facility] ional Health - Occupational Stress [...] No 02/16/2022 Housing Stability Vital Sign Answer Antoyn e Recorded In the last 12 months, [...] place to sleep or slept in a fpc (including now)? No 02/16/2022 Area Deprivation Index Answer Date Chi rded National Score (1-100), lower number is lower ri sk 86 06/30/2022 State Score (1-10), lower number is lower risk 8 06/30/2022 Data from: https://www.neighborhoodatlas.medicine.[facility].edu/. Last address used for calculation [...] Assessment Author No 06/26/2018 10:19 AM EDT Tawana, A bigail R, RN * Because of a physical, mental, [...] PM EDT Office Visit Endocrinology [address] [facility] [place] [address] Sima Paz APRN.FILM MAKER [address] [facility] [place] [address] Return in about 6 months (around 12/05/2024). 01/20/2025 9:20 AM EST Office Visit Kidney Medicine [address] [place] [address] Jose Matthews MD [address] [place], [place] [phone] 6 month follow up 04/10/2025 9:30 AM EST Office Visit Cardiology [address] [facility] [place] [address] Aleksandar De La Garza DO [address] [facility] [place] [address] 1 year follow up 06/26/2025 10:15 AM EDT Office Visit OPHT Ophthalmology [address] [facility] [place] [address] Keo Hadley, OD [address] [place] [address] Annual Full Eye Exam with mac OCT documented as of this encounter Visit Diagnoses Not on filedocumented in this encounter Care Teams Yeast Maker Relationship Specialty Start Date End Date Elisabeth Edwards MD [address] [place] [address] PCP - General Family Medicine 03/20/18 Jesus Waters MD [address] [place] [address] Neurology 04/12/22 documented as of this encounter
--- OUTSIDE RECORDS SUMMARY | 2024-08-20 16:53 | XMS_ITS | Encounter Summary ---
Author Organization [facility] Address [address] [place] [address] Care Team Providers Care Slope Tender Name Role Phone Elisabeth Edwards MD Primary Care Provider [phone] Jesus Waters MD Unavailable Source Comments In the event this information is protected by the Federal Confidentiality of Alcohol and Drug AbusePatient Records regulations: The Federal rules restrict any use of the information to criminally investigate or prosecute any alcohol or drug abuse patient.[facility] Encounter Details Date Type Department Care Team (Late st Contact Info) Description 04/03/2019 Patient Msg Endocrinology [address] [place] [address] Provider, Ccf 1 year (around 04/03/2020) for your endocrine follow up Social History Tobacco Use Types Packs/Day Years Used Date Smoking Tobacco: Former Cigarettes 1 13 1 975 - 1987 Smokeless Tobacco: Never Alcohol Use Standard Drinks/Week Comments No 0 (1 standard drink = 0.6 oz pur e alcohol) PHQ-2 Answer Date Recorded PHQ-2 Score 0 12/31/2018 Comments No Sex and Gender Information Value [...] 2:00 PM EDT Office Visit Endocrinology [address] [place] [address] iSma Paz, REJI.ON CAR SUPERVISOR [address] [facility] [place] [address] Return in about 6 months (around 12/05/2024). 01/20/2025 9:20 AM EST Office Visit Kidney Medicine [address] [place] [address] Jose Matthews MD [address] [place] [address] 6 month follow up 04/10/2025 9:30 AM EST Office Visit Cardiology [address] [facility] [place] [address] Aleksandar De La Garza DO [address] [facility] [place] [address] 1 year follow up 06/26/2025 10:15 AM EDT Office Visit OPHT Ophthalmology [address] [place] [address] Keo Hadley S, OD [address] [place] [address] Annual Full Eye Exam with mac OCT documented as of this encounter Visit Diagnoses Not on filedocumented in this encounter Care Teams Slope Tender Relationship Specialty Start Date End Date Elisabeth Edwards MD [address] [place] [address] PCP - General Family Medicine 03/20/18 Jesus Waters MD [address] [place] [address] Neurology 04/12/22 documented as of this encounter
--- OUTSIDE RECORDS SUMMARY | 2024-08-20 16:53 | XMS_ITS | Clinical Summary ---
Author Organization [facility] Address [address] [place] [address] Care Team Providers Care Plant Technician Name Role Phone Elisabeth Edwards MD Primary Care Provider [phone] Allergies Active Allergy Reactions Criticality Noted Date Comments Acetaminophen Hives 05/03/2023 Atorvastatin 05/07/2020 Other Reaction(s): Other: See Comments joint pains. Carvedilol 06/07/2020 Other Reaction(s): Other: See Comments significant bradycardia Gabapentin 01/17/2016 Other Reaction(s): high BP, Hypertension, Other: See Comments Hydrochlorothiazide 06/07/2020 Other Reaction(s): Other: See Comments Decreased kidney function. Hydrocodone 05/03/2023 Other Reaction(s): Hives Hydrocodone-Acetaminophen Unknown 08/10/2022 Sulfamethoxazole 05/03/2023 Other Reaction(s): Hives Sulfamethoxazole-Trimethoprim 2022 Other Reaction(s): Unknown Tramadol 01/17/2016 Other Reaction(s): high BP, Nausea, Other: See Comments tolerates percocet and hydrocodone Trimethoprim 05/03/2023 Other Reaction(s): Hives Medications alendronate (Fosamax) 70 MG tablet 4 Active amLODIPine (Norvasc) 5 MG tablet 4 Active Calcium Carb-Cholecalci ferol 500-10 MG-MCG tablet Take 1 tablet by mouth in the morning. Active cyclobenzaprine (Flexeril) 10 MG tablet 3 Active diclofenac sodium 1 % gel 4 Active Semaglutide,0.2 5 or 0.5MG/DOS, 2 MG/3ML solution pen-injector 3 Active rosuvastatin (Crestor) 10 MG tablet Take 10 mg by mouth every other day 4 Active magnesium oxide (Mag-Ox) 400 MG tablet 3 Active levothyroxine (Synthroid, Levoxyl) 137 MCG tablet Take 137 mcg by mouth Daily 4 Active fluticasone (Flonase) 50 MCG/ACT nasal spray Administer 2 sprays into each nostril Daily 4 Active OneTouch Verio test strip 4 Active ezetimibe (Zetia) 10 MG tablet Take 10 mg by mouth Daily Active losartan (Cozaar) 25 MG tablet Take 25 mg by mouth in the morning and 25 mg before bedtime. 5 Active tiZANidine (Zanaflex) 2 MG tablet TAKE 1 TABLET DAILY AT BEDTIME NEEDED FOR MUSCLE SPASTICITY 5 Active Active Problems Problem Noted Date Diagnosed Date Abnormality of left breast on screening mammogra m 06/20/2023 Atypical lobular hyperplasia (ALH) of right ruthie st 06/07/2023 Encounters Date Type Department Care Team Description 07/18/2024 9:45 AM EDT Office Visit [facility] [address] [facility] [address] [place] [phone] Yovanny He, Atypical lobular hyperplasia (ALH) of right breast (Primary Dx) 07/18/2024 Travel 07/04/2024 Travel 05/23/2024 Telephone [facility] [address] [place] [address] Latanya Vasquez MA from Last 3 Months Family History Medical History Relation Name Comments Diabetes Father [place] Borrero Hearing loss Father Dev Borrero Kidney disease Father [place] Borrero Colon cancer Father's Brother 1 Vision loss Father's Brother 2 Randy Borrero Arthritis Mother Orpha Borrero Heart disease Mother Orpha Borrero Hypertension Mother Orpha Borrero Breast cancer Mother's Sister Ovarian cancer Neg Hx Relation Name Status Comments Father [place] Borrero Father's Brother 1 Father's Brother 2 Randy Borrero Alive Mother Ormatt Borrero Mother's Sister Sister 3 Social History Tobacco Use Types Packs/Day Years Used Date Smoking Tobacco: Former Cigarettes Q uit: 1986 Smokeless Tobacco: Never Tobacco Cessation:Counseling Given: Not Answered Alcohol Use Standard Drinks/Week Comments Never 0 (1 standard drink = 0.6 oz pur e alcohol) Caffiene use: Coffee, Soda Comments Unknown Sex and Gender Information Value Date Recorded Sex Assigned at Not on file Legal Sex Female 6:50 PM EDT Gender Identity Not on file Sexual Orientation Not on file Last Filed Vital Signs Vital Sign Reading Time Taken Comments Blood Pressure 130/80 07/18/2024 9:58 AM EDT Pulse - - Temperature - - Respiratory Rate - - Oxygen Saturation - - Inhaled Oxygen Concentration - - Weight 70.8 kg (156 lb) 07/18/2024 9:58 AM EDT Height 160 cm (5' 3 ) 07/18/2024 9:58 AM EDT Body Mass Index 27.63 07/18/2024 9:58 AM EDT Plan of Treatment Upcoming Encounters Date Type Department Care Team (Late st Contact Info) Description 07/23/2025 10:30 AM EDT Office Visit [facility] [address] [address] Yovanny He, DO 7[address] [facility] [address] [place] [address] Procedures Procedure Name Priority Date/Time Associated Diagnosis Comments BI MAMMOGRAM DIAGNOSTIC TOMOSYNTHESIS BILATERAL Routine 05/28/2024 9:24 AM EDT Atypical lobular hyperplasia (ALH) of right breast Benign neoplasm breast, right from Last 3 Months Results * Bilateral diagnostic mammogram with tomosynthesis (05/28/2024 9:24 AM EDT) Anatomical Region Laterality Modality Breast Bilateral Mammography 05/28/2024 9:24 AM EDT Impressions 05/28/2024 9:41 AM EDT NO MAMMOGRAPHIC EVIDENCE OF MALIGNANCY. ROUTINE FOLLOW-UP IS RECOMMENDED IN ONE YEAR. RESULT CODE: 1 Negative DENSITY CODE: 2 (approximately 25-50% glandular) There are scattered areas of fibroglandular density. FOLLOW UP: 1YR The false-negative rate of mammography is approximately 10-percent. Management of a palpable abnormality must be based on clinical grounds. Patient was entered into a reminder system with a target due date for the next mammogram. Impression dictated by: Tesfaye Srinivasan Jr., D.O.05/28/2024 9:39 AM Dictation Location: [facility] Dictated By: Tesfaye Srinivasan Jr, DO 05/28/[address]23 Signed By: <Electronically signed by Tesfaye Srinivasan Jr, DO in OV> 05/28/24938 Narrative 05/28/2024 9:41 AM EDT [facility] [address] [place] [address] Mammography Report Signed Patient: Lakshmi Candelaria MR#: [id number] [id number] : 1960 Acct:[id number] Age/Sex: 63 / F Adm Date: 05/28/24 Loc: [place] Room: Type: [facility] Attending Dr: Yovanny He DO Ordering Provider: Yovanny He DO Date of Service: 05/28/24 Procedure(s): MM diagnostic mammo BI w/CAD Accession Number(s): ([id number]) MM/MM diagnostic mammo BI w/CAD: Yrly mamms Copies to: DO Elisabeth Aponte MD CLINICAL DATA: History of benign left breast biopsy. History of right-sided breast atypia status post lumpectomy Bilateral DIAGNOSTIC MAMMOGRAM - WITH TOMOSYNTHESIS AND CAD COMPARISON:Mammograms dating back to 2019 Tomosynthesis imaging was obtained using low-dose digital technique. This examination was reviewed with the aid of CAD. FINDINGS: The breasts are composed of heterogeneously dense fibroglandular tissue. Grossly stable posttreatment changes right breast. No new areas of architectural distortion, worrisome masses or suspicious minor calcifications within either breast. MM/MM diagnostic mammo BI w/CAD Procedure Note Tesfaye Srinivasan Jr., MD - 05/28/2024 [facility] [address] [facility] [address] [place] [address] Mammography Report Signed Patient: Lakshmi CandelariaMR#: [id number] : 1Acct:[id number] Age/Sex: 63 / FAdm Date: 05/28/24 Loc: [place] Room:Type: [facility] Attending Dr: Yovanny He DO Ordering Provider: Yovanny He DO Date of Service: 05/28/24 Procedure(s): MM diagnostic mammo BI w/CAD Accession Number(s): ([id number]) MM/MM diagnostic mammo BI w/CAD: Yrlymamms Copies to: DO Elisabeth Aponte MD CLINICAL DATA: History of benign left breast biopsy. History ofright-sided breast atypia status post lumpectomy Bilateral DIAGNOSTIC MAMMOGRAM - WITH TOMOSYNTHESIS AND CAD COMPARISON:Mammograms dating back to 2019 Tomosynthesis imaging was obtained using low-dose digital technique.This examination was reviewed with the aid of CAD. FINDINGS: The breasts are composed of heterogeneously dense fibroglandular tissue.Grossly stable posttreatment changes right breast. No new areas of architecturaldistortion, worrisome masses or suspicious minor calcifications within either breast. MM/MM diagnostic mammo BI w/CAD IMPRESSION: NO MAMMOGRAPHIC EVIDENCE OF MALIGNANCY. ROUTINE FOLLOW-UP IS RECOMMENDED IN ONE YEAR. RESULT CODE: 1 Negative DENSITY CODE: 2 (approximately 25-50% glandular) There are scattered areasof fibroglandular density. FOLLOW UP: 1YR The false-negative rate of mammography is approximately 10-percent. Management of a palpable abnormality must be based on clinical grounds. Patient was entered into a reminder system with a target due date for thenext mammogram. Impression dictated by: Tesfaye Srinivasan Jr., D.O.05/28/2024 9:39 AM Dictation Location: [facility] Dictated By: Tesfaye Srinivasan Jr, DO 05/28/24 0924 Signed By: <Electronically signed by Tesfaye Srinivasan Jr, DO inOV> 05/28/24 09 Yovanny He DO IMG BI PROCEDURES Final R esult from Last 3 Months Insurance [employer] MEDICARE [employer] MEDICAID [place] Care Teams Plant Technician Relationship Specialty Start Date End Date Elisabeth Edwards MD [address] [place] [phone] PCP - General Family Medicine 07/04/24
--- OUTSIDE RECORDS SUMMARY | 2024-08-20 16:53 | XMS_ITS | Encounter Summary ---
Author Organization [facility] Address [address] [place] [address] Care Team Providers Care Bonding Machine Operator Name Role Phone Elisabeth Edwards MD Primary Care Provider Jesus Waters MD Unavailable [phone] Source Comments In the event this information is protected by the Federal Confidentiality of Alcohol and Drug AbusePatient Records regulations: The Federal rules restrict any use of the information to criminally investigate or prosecute any alcohol or drug abuse patient.[facility] Encounter Details Date Type Department Care Team (Late st Contact Info) Description 01/01/2020 Patient Msg Gastroenterology [address] [address] Sarah Forrester APRN.[facility] [address] [place] [address] Recent labs Social History Tobacco Use Types Packs/Day Years [...] often do you attend chur ch or druze services? More than 4 times per year 10/06/2019 Do you belong to any clubs o r organizations such as cheondoism groups, unions, fraternal or athletic groups, or [...] Answer Date Recorded PHQ-2 score 1 10/02/2019 [facility] of Occupat ional Health - Occupational [...] in a care home (including now)? No 10/06/2019 Education Answer Date Recorded What is the [...] or suspected to have Coronavirus / COVID-19? No / Unsure 12/29/2019 7:28 AM EST documented as of this encounter Functional Status [...] PM EDT Office Visit Endocrinology [address] [facility] [place] [address] Sima Paz APRN.ICE CREAM MAKER [address] [place] [address] Return in about 6 months (around 12/05/2024). 01/20/2025 9:20 AM EST Office Visit Kidney Medicine [address] [place] [address] Jose Matthews MD [address] [place], [place] [phone] 6 month follow up 04/10/2025 9:30 AM EST Office Visit Cardiology [address] [facility] [place] [address] Aleksandar De La Garza DO [address] [facility] [address] 1 year follow up 06/26/2025 10:15 AM EDT Office Visit [facility] Ophthalmology [address] [facility] [place] [address] Keo Hadley, OD [address] [facility] [place] [address] Annual Full Eye Exam with mac OCT documented as of this encounter Visit Diagnoses Not on filedocumented in this encounter Care Teams Bonding Machine Operator Relationship Specialty Start Date End Date Elisabeth Edwards MD [address] [place] [address] PCP - General Family Medicine 03/20/18 Jesus Waters MD [address] [place] [address] Neurology 04/12/22 documented as of this encounter
--- OUTSIDE RECORDS SUMMARY | 2024-08-20 16:53 | XMS_ITS | Encounter Summary ---
Author Organization [facility] Address [address] [place] [address] Care Team Providers Care Parcel Post Carrier Name Role Phone Elisabeth Edwards MD Primary Care Provider [phone] Jesus Waters MD Unavailable [phone] Source Comments In the event this information is protected by the Federal Confidentiality of Alcohol and Drug AbusePatient Records regulations: The Federal rules restrict any use of the information to criminally investigate or prosecute any alcohol or drug abuse patient.[facility] Encounter Details Date Type Department Care Team (Late st Contact Info) Description 12/16/2019 Patient Msg Internal Medicine [address] [place] [address] Provider, Ccf Appointment Scheduling Social History Tobacco Use Types Packs/Day Years [...] you attend chur ch or buddhist services? More than 4 times per year 10/06/2019 Do you belong to any clubs o r organizations such as sikhism groups, unions, fraternal or athletic groups, or [...] have a drink containing alc ohol? Never 10/06/2019 Average Number of Drinks Not on file 020 Q3: How often do you have si x or more drinks on one occasion? Never 10/06/2019 Overall Financial Resource Strain (CARDIA) Answe r Date Recorded How hard is it for you to pa y for the very basics like food, housing, medical care, and heating? Somewhat hard 10/06/2019 PHQ-2 Answer Date Recorded PHQ-2 score 1 10/02/2019 [facility] - Occupational [...] place to sleep or slept in a mcfp (including now)? No 10/06/2019 Education Answer Date [...] have Coronavirus / COVID-19? No / Unsure 11/25/2019 12:00 PM EDT documented as of this encounter Functional [...] 2:00 PM EDT Office Visit Endocrinology [address] [place] [address] Sima Paz APRN.PERMACULTURE CONTRACTOR [address] [facility] [place] [address] Return in about 6 months (around 12/05/2024). 01/20/2025 9:20 AM EST Office Visit Kidney Medicine [address] [place] [address] Jose Matthews MD [address] [place] [address] 6 month follow up 04/10/2025 9:30 AM EST Office Visit Cardiology [address] [facility] [place] [address] Aleksandar De La Garza DO [address] [facility] [place] [address] 1 year follow up 06/26/2025 10:15 AM EDT Office Visit OPHT Ophthalmology [address] [facility] [place] [address] Keo Hadley S, OD [address] [place] [address] Annual Full Eye Exam with mac OCT documented as of this encounter Visit Diagnoses Not on filedocumented in this encounter Care Teams Parcel Post Carrier Relationship Specialty Start Date End Date Elisabeth Edwards MD [address] [place] [address] PCP - General Family Medicine 03/20/18 Jesus Waters MD [address] [place] [address] Neurology 04/12/22 documented as of this encounter
--- OUTSIDE RECORDS SUMMARY | 2024-08-20 16:53 | XMS_ITS | Encounter Summary ---
Author Organization [facility] Address [address] [place] [address] Care Team Providers Care Supervisor Title Name Role Phone Deshawn Guanaco Baker DO Primary Care Provider Elisabeth Edwards MD Primary Care Provider [phone] Jesus Waters MD Unavailable [phone] Source Comments In the event this information is protected by the Federal Confidentiality of Alcohol and Drug AbusePatient Records regulations: The Federal rules restrict any use of the information to criminally investigate or prosecute any alcohol or drug abuse patient.[facility] Encounter Details Date Type Department Care Team (Late st Contact Info) Description 01/22/2018 Patient Msg Medical Records [address] [place] [address] Provider, Ccf RE:Nutrition question/follow up Social History Tobacco Use Types Packs/Day Years Used Date Smoking Tobacco: Former Cigarettes 1 13 1 5 - 1987 Smokeless Tobacco: Never Comments No Sex and Gender Information Value Date Recorded Sex Assigned at Not on file Legal Sex Female 1:12 PM EDT Gender Identity Not on file Sexual Orientation Not on file documented as of this encounter Functional Status * Are you deaf or do you have serious difficulty hearing? Answer Date of Assessment Author No 08/28/2017 4:52 PM EDT Tana Laws APRN.SENIOR CONTROLS ANALYST * Are you blind or do you have serious difficulty seeing, even when wearing glasses? Answer Date of Assessment Author No 08/28/2017 4:52 PM EDT Tana Laws APRN.SENIOR CONTROLS ANALYST * Do you have serious difficulty walking or climbing stairs? Answer Date of Assessment Author No 08/28/2017 4:52 PM EDT Tana Laws APRN.SENIOR CONTROLS ANALYST * Do you have difficulty dressing or bathing? Answer Date of Assessment Author No 08/28/2017 4:52 PM EDT Tana Laws APRN.SENIOR CONTROLS ANALYST * Because of a physical, mental, or emotional condition, do you have difficulty doing errands alone such as visiting a doctor's office or shopping? Answer Date of Assessment Author No 08/28/2017 4:52 PM EDT Tana Laws APRN.SENIOR CONTROLS ANALYST documented as of this encounter Mental Status * Because of a physical, mental, or emotional condition, do you have serious difficulty concentrating, remembering, or making decisions? Answer Entry Date Author No 08/28/2017 4:52 PM EDT Tana Laws APRN.SENIOR CONTROLS ANALYST documented in this encounter Plan of Treatment Upcoming Encounters Date Type Department Care Team (Latest Contact Info) Description 12/05/2024 2:00 PM EDT Office Visit Endocrinology [address] [place] [address] Sima Paz, INCOME TAX EXPERT.SENIOR CONTROLS ANALYST [address] [facility] [place] [address] Return in about 6 months (around 12/05/2024). 01/20/2025 9:20 AM EST Office Visit Kidney Medicine [address] [place], [place] [id number] Jose Matthews MD [address] [place] [address] 6 month follow up 04/10/2025 9:30 AM EST Office Visit Cardiology [address] [place] [address] Aleksandar De La Garza [address] [facility] [place] [address] 1 year follow up 06/26/2025 10:15 AM EDT Office Visit OPHT Ophthalmology [address] [facility] [place] [address] Keo Hadley S, OD [address] [place] [address] Annual Full Eye Exam with mac OCT documented as of this encounter Visit Diagnoses Not on filedocumented in this encounter Care Teams Supervisor Title Relationship Specialty Start Date End Date Guanaco Hess DO [address] [place] [address] PCP - General Family Medicine 03/13/17 03/19/18 Elisabeth Edwards MD [address] [place] [address] PCP - General Family Medicine 03/20/18 Jesus Waters MD [address] [place] [address] Neurology 04/12/22 documented as of this encounter
--- OUTSIDE RECORDS SUMMARY | 2024-08-20 16:53 | XMS_ITS | Encounter Summary ---
Author Organization [facility] Address [address] [place] [address] Care Team Providers Care Military Source Operations Officer Name Role Phone Elisabeth Edwards MD Primary Care Provider [phone] Jesus Waters MD Unavailable [phone] Source Comments In the event this information is protected by the Federal Confidentiality of Alcohol and Drug AbusePatient Records regulations: The Federal rules restrict any use of the information to criminally investigate or prosecute any alcohol or drug abuse patient.[facility] Encounter Details Date Type Department Care Team (Late st Contact Info) Description 03/19/2023 Patient Msg Kidney Medicine [address] [place] [address] Day Valle APRN.[facility] [address] [facility] [address] [place] [phone] Appointment Request () Social History Tobacco Use Types Packs/Day Years [...] any clubs o r organizations such as buddhism groups, unions, fraternal or athletic groups, or [...] Answer Date Recorded PHQ-2 score 1 12/17/2022 [facility] - Occupational Stress Questionnaire Answer Date [...] is lower risk 8 06/30/2022 Data from: https://www.neighborhoodatlas.medicine.[facility].edu/. Last address used for calculation [address] [...] of Assessment Author No 06/26/2018 10:19 AM JUDAHT Bryce Gilliam RN documented as of this [...] 2:00 PM EDT Office Visit Endocrinology [address] [place] [address] Sima Paz, REJI.POULTRY BONER [address] [facility] [place] [address] Return in about 6 months (around 12/05/2024). 01/20/2025 9:20 AM EST Office Visit Kidney Medicine [address] [place] [address] Jose Matthews MD [address] [place], [place] [id number] 6 month follow up 04/10/2025 9:30 AM EST Office Visit Cardiology [address] [facility] [place] [address] Aleksandar De La Garza DO [address] [facility] [place] [address] 1 year follow up 06/26/2025 10:15 AM EDT Office Visit OPHT Ophthalmology [address] [facility] [place] [address] Keo Hadley, OD [address] [facility] [place] [place] [address] Annual Full Eye Exam with mac OCT documented as of this encounter Visit Diagnoses Not on filedocumented in this encounter Care Teams Military Source Operations Officer Relationship Specialty Start Date End Date Elisabeth Edwards MD [address] [place] [address] PCP - General Family Medicine 03/20/18 Jesus Waters MD [address] [place] [address] Neurology 04/12/22 documented as of this encounter
--- OUTSIDE RECORDS SUMMARY | 2024-08-20 16:53 | XMS_ITS | Encounter Summary ---
Author Organization [facility] Address [address] [place] [address] Care Team Providers Care Health And Fitness Professor Name Role Phone Elisabeth Edwards MD Primary Care Provider [phone] Jesus Waters MD Unavailable [phone] Source Comments In the event this information is protected by the Federal Confidentiality of Alcohol and Drug AbusePatient Records regulations: The Federal rules restrict any use of the information to criminally investigate or prosecute any alcohol or drug abuse patient.[facility] Encounter Details Date Type Department Care Team (Late st Contact Info) Description 09/08/2021 Patient Msg Gastroenterology [address] [phone] Provider, Ccf COLONOSCOPY INSTRUCTIONS Social History Tobacco Use Types Packs/Day Years [...] often do you attend chur ch or restoration services? More than 4 times per year 10/06/2019 Do you belong to any clubs o r organizations such as gnosticist groups, unions, fraternal or athletic groups, or [...] Answer Date Recorded PHQ-2 score 1 10/02/2019 [facility] - Occupational Stress Questionnaire Answer Date Recorded [...] place to sleep or slept in a half-way (including now)? No 10/06/2019 Area Deprivation Index Answer Date Chi rded National Score (1-100), lower number is lower ri sk Not on file 01/25/2020 State Score (1-10), lower number is lower risk N ot on file 01/25/2020 Data from: https://www.neighborhoodatlas.medicine.[facility]/. Last address used for calculation Not on [...] 2:00 PM EDT Office Visit Endocrinology [address] [place] [address] Sima Paz APRN.OPEN HEARTH FURNACE OPERATOR [address] [place] [address] Return in about 6 months (around 12/05/2024). 01/20/2025 9:20 AM EST Office Visit Kidney Medicine [address] [place] [address] Jose Matthews MD [address] [place], [place] [id number] 6 month follow up 04/10/2025 9:30 AM EST Office Visit Cardiology [address] [place] [address] Aleksandar De La Garza DO [address] [place] [address] 1 year follow up 06/26/2025 10:15 AM EDT Office Visit OPHT Ophthalmology [address] [place] [address] Keo Hadley, OD [address] [place] [address] Annual Full Eye Exam with mac OCT documented as of this encounter Visit Diagnoses Not on filedocumented in this encounter Care Teams Health And Fitness Professor Relationship Specialty Start Date End Date Elisabeth Edwards MD [address] [place] [address] PCP - General Family Medicine 03/20/18 Jesus Waters MD [address] [place] [address] Neurology 04/12/22 documented as of this encounter
--- OUTSIDE RECORDS SUMMARY | 2024-08-20 16:53 | XMS_ITS | Encounter Summary ---
Author Organization [facility] Address [address] [place] [address] Care Team Providers Care Diesel Stationary Engineer Name Role Phone DeshawnGuanaco staton Samuel [place]ES Primary Care Provider Elisabeth Edwards MD Primary Care Provider [phone] Jesus Waters MD Unavailable [phone] Source Comments In the event this information is protected by the Federal Confidentiality of Alcohol and Drug AbusePatient Records regulations: The Federal rules restrict any use of the information to criminally investigate or prosecute any alcohol or drug abuse patient.[facility] Encounter Details Date Type Department Care Team (Late st Contact Info) Description 12/19/2017 Patient Msg General Surgery [address] [place] [address] Paulina Rayo MD [address] [place] [address] Bariatric Labs Social History Tobacco Use Types Packs/Day Years Used Date Smoking Tobacco: Former Cigarettes 1 13 1 975 - 1987 Smokeless Tobacco: Never Comments No [...] No 08/28/2017 4:52 PM EDT Tana Laws APRN.SITE SUPERVISING TECHNICAL OPERATOR * Are you blind or do you have serious difficulty seeing, even when wearing glasses? Answer Date of Assessment Author No 08/28/2017 4:52 PM EDT Tana Laws APRN.SITE SUPERVISING TECHNICAL OPERATOR * Do you have serious difficulty walking or climbing stairs? Answer Date of Assessment Author No 08/28/2017 4:52 PM EDT Tana Laws APRN.SITE SUPERVISING TECHNICAL OPERATOR * Do you have difficulty dressing or bathing? Answer Date of Assessment Author No 08/28/2017 4:52 PM EDT Tana Laws APRN.SITE SUPERVISING TECHNICAL OPERATOR * Because of a physical, mental, or emotional condition, do you have difficulty doing errands alone such as visiting a doctor's office or shopping? Answer Date of Assessment Author No 08/28/2017 4:52 PM EDT Tana Laws APRN.SITE SUPERVISING TECHNICAL OPERATOR documented as of this encounter Mental Status * Because of a physical, mental, or emotional condition, do you have serious difficulty concentrating, remembering, or making decisions? Answer Entry Date Author No 08/28/2017 4:52 PM EDT Tana Laws APRN.SITE SUPERVISING TECHNICAL OPERATOR documented in this encounter Plan of Treatment Upcoming Encounters Date Type Department Care Team (Latest Contact Info) Description 12/05/2024 2:00 PM EDT Office Visit Endocrinology [address] [place] [address] Sima Paz, CONFIGURATION MANAGEMENT SPECIALIST.SITE SUPERVISING TECHNICAL OPERATOR [address] [place] [address] Return in about 6 months (around 12/05/2024). 01/20/2025 9:20 AM EST Office Visit Kidney Medicine [address] [facility] [place] [address] Jose Matthews MD [address] [place] [address] 6 month follow up 04/10/2025 9:30 AM EST Office Visit Cardiology [address] [facility] [place] [address] Aleksandar De La Garza DO [address] [facility] [place] [address] 1 year follow up 06/26/2025 10:15 AM EDT Office Visit OPHT Ophthalmology [address] [place] [address] Keo Hadley, OD [address] [place] [address] Annual Full Eye Exam with mac OCT documented as of this encounter Visit Diagnoses Not on filedocumented in this encounter Care Teams Diesel Stationary Engineer Relationship Specialty Start Date End Date Guanaco Hess DO [address] [place] [address] PCP - General Family Medicine 03/13/17 03/19/18 Elisabeth Edwards MD [address] [place] [address] PCP - General Family Medicine 03/20/18 Jesus Waters MD [address] [place] [address] Neurology 04/12/22 documented as of this encounter
--- OUTSIDE RECORDS SUMMARY | 2024-08-20 16:53 | XMS_ITS | Encounter Summary ---
Author Organization [facility] Address [address] [place] [address] Care Team Providers Care Workers Compensation Coordinator Name Role Phone Elisabeth Edwards MD Primary Care Provider [phone] Jesus Waters MD Unavailable [phone] Source Comments In the event this information is protected by the Federal Confidentiality of Alcohol and Drug AbusePatient Records regulations: The Federal rules restrict any use of the information to criminally investigate or prosecute any alcohol or drug abuse patient.[facility] Encounter Details Date Type Department Care Team (Late st Contact Info) Description 09/18/2019 Patient Msg Cardiology [address] [place] [address] Provider, Ccf lab work Social History Tobacco Use Types Packs/Day Years [...] have Coronavirus / COVID-19? No / Unsure 09/17/2019 1:54 PM EDT documented as of this encounter Functional Status * Are you deaf or do you have serious difficulty hearing? Answer Date of Assessment Author No 06/26/2018 10:19 AM EDT Bryce Gilliam RN * Are you blind or do [...] PM EDT Office Visit Endocrinology [address] [place] [address] Sima Paz, REJI.RIVETING MACHINE OPERATOR [address] [facility] [place] [address] Return in about 6 months (around 12/05/2024). 01/20/2025 9:20 AM EST Office Visit Kidney Medicine [address] [place] [address] Jose Matthews MD [address] [place] [address] 6 month follow up 04/10/2025 9:30 AM EST Office Visit Cardiology [address] [facility] [place] [address] Aleksandar De La Garza DO [address] [facility] [place] [address] 1 year follow up 06/26/2025 10:15 AM EDT Office Visit OPHT Ophthalmology [address] [place] [address] Keo Hadley S, OD [address] [place] [address] Annual Full Eye Exam with mac OCT documented as of this encounter Visit Diagnoses Not on filedocumented in this encounter Care Teams Workers Compensation Coordinator Relationship Specialty Start Date End Date Elisabeth Edwards MD [address] [place] [address] PCP - General Family Medicine 03/20/18 Jesus Waters MD [address] [place] [address] Neurology 04/12/22 documented as of this encounter
--- OUTSIDE RECORDS SUMMARY | 2024-08-20 16:53 | XMS_ITS | Encounter Summary ---
Author Organization [facility] Address [address] [place] [address] Care Team Providers Care Cyber Workforce Developer And Manager Name Role Phone Elisabeth Edwards MD Primary Care Provider [phone] Elisabeth Edwards MD Primary Care Provider [phone] Encounter Details Date Type Department Care Team (Late st Contact Info) Description 01/03/2018 Abstract [facility] [address] [place] [phone] Kiana Hurt, [facility] [place] [address] [place] [address] Social History Tobacco Use Types Packs/Day Years [...] EDT Office Visit [facility] [address] [phone] Yovanny He DO [address] [facility] [address] [place] [address] documented as of this encounter Visit Diagnoses Not on filedocumented in this encounter Care Teams Cyber Workforce Developer And Manager Relationship Specialty Start Date End Date Elisabeth Edwards MD PCP - General Family Medicine 08/04/22 07/03/24 Elisabeth Edwards MD [address] [place] [phone] PCP - General Family Medicine 07/04/24 documented as of this encounter
--- OUTSIDE RECORDS SUMMARY | 2024-08-20 16:53 | XMS_ITS | Clinical Summary ---
Author Organization [facility] Address [address] [place] [address] Phone Care Team Providers Care Pets And Pet Supplies Salesperson Name Role Phone Unavailable Primary Care Provider Unavailabl e Social History Tobacco Use Types Packs/Day Years Used Date Smoking Tobacco: Never Assessed Comments Unknown Sex and Gender Information Value Date Recorded Sex Assigned at Not on file Legal Sex Female 4:06 AM EST Gender Identity Not on file Sexual Orientation Not on file Plan of Treatment Health Maintenance Due Date Last Done Comments CT Colonography 1960 Colonoscopy 1960 Colorectal Cancer Screening 1960 FIT-DNA (Cologuard) 1960 FIT 1960 HIV Screening 1960 Lipid Panel 1960 Sigmoidoscopy 1960 Yearly Adult Physical 1960 MMR Vaccines (1 of 1 - Stand marta series) 1961 Hepatitis C Screening 1978 Cervical Cancer Screening 1981 HPV/Cotest 1981 Pap Smear 1981 DTaP/Tdap/Td Vaccines (1 - Tdap) 1982 Mammogram 2000 Pneumococcal Vaccine (1 of 1 - PCV) 2010 Zoster Vaccines (1 of 2) 2010 COVID-19 Vaccine ( - 2023-2 5 season) 2023 Influenza Vaccine (Season Ended) 2024 RSV High Risk: (Elderly (60+ ) or Population) (1 - 1-dose 75+ series) 12/23/2035 HIB Vaccines Aged Out No longer eligi ble based on patient's age to complete this topic HPV Vaccines (No Doses Required) Completed Hepatitis A Vaccines Aged Out No long er eligible based on patient's age to complete this topic Hepatitis B Vaccines Aged Out No long er eligible based on patient's age to complete this topic IPV Vaccines Aged Out No longer eligi ble based on patient's age to complete this topic Meningococcal Vaccine Aged Out No bere norberto eligible based on patient's age to complete this topic Rotavirus Vaccines Aged Out No longer eligible based on patient's age to complete this topic
--- OUTSIDE RECORDS SUMMARY | 2024-08-20 16:53 | XMS_ITS | Encounter Summary ---
Author Organization [facility] Address [address] [place] [address] Care Team Providers Care Bumper Straightener Name Role Phone DeshawnGuanaco staton Samuel TALAMANTES Primary Care Provider Elisabeth Edwards MD Primary Care Provider [phone] Jesus Waters MD Unavailable [phone] Source Comments In the event this information is protected by the Federal Confidentiality of Alcohol and Drug AbusePatient Records regulations: The Federal rules restrict any use of the information to criminally investigate or prosecute any alcohol or drug abuse patient.[facility] Encounter Details Date Type Department Care Team (Late st Contact Info) Description 03/06/2018 Get Medical Advice General Surgery [address] [place] [address] Bryant Maravilla MD [address] [facility] [place] [address] RE: FW: Medication Question (Not Renewal) Social History Tobacco Use Types Packs/Day Years [...] No 08/28/2017 4:52 PM EDT Tana Laws APRN.PSYCHIATRIC AIDE INSTRUCTOR * Are you blind or do you have serious difficulty seeing, even when wearing glasses? Answer Date of Assessment Author No 08/28/2017 4:52 PM EDT Tana Laws APRN.PSYCHIATRIC AIDE INSTRUCTOR * Do you have serious difficulty walking or climbing stairs? Answer Date of Assessment Author No 08/28/2017 4:52 PM EDT Tana Laws APRN.PSYCHIATRIC AIDE INSTRUCTOR * Do you have difficulty dressing or bathing? Answer Date of Assessment Author No 08/28/2017 4:52 PM EDT Tana Laws APRN.PSYCHIATRIC AIDE INSTRUCTOR * Because of a physical, mental, or emotional condition, do you have difficulty doing errands alone such as visiting a doctor's office or shopping? Answer Date of Assessment Author No 08/28/2017 4:52 PM EDT Tana Laws APRN.PSYCHIATRIC AIDE INSTRUCTOR documented as of this encounter Mental Status * Because of a physical, mental, or emotional condition, do you have serious difficulty concentrating, remembering, or making decisions? Answer Entry Date Author No 08/28/2017 4:52 PM EDT Tana Laws APRN.PSYCHIATRIC AIDE INSTRUCTOR documented in this encounter Plan of Treatment Upcoming Encounters Date Type Department Care Team (Latest Contact Info) Description 12/05/2024 2:00 PM EDT Office Visit Endocrinology [address] [place] [address] Sima Paz, SOLAR ELECTRIC PRACTITIONER.PSYCHIATRIC AIDE INSTRUCTOR [address] [place] [address] Return in about 6 months (around 12/05/2024). 01/20/2025 9:20 AM EST Office Visit Kidney Medicine [address] [place], [place] [id number] Jose Matthews MD [address] [place] [address] 6 month follow up 04/10/2025 9:30 AM EST Office Visit Cardiology [address] [facility] [place] [address] Aleksandar De La Garza DO [address] [facility] [place] [address] 1 year follow up 06/26/2025 10:15 AM EDT Office Visit OPHT Ophthalmology [address] [facility] [place] [address] Keo Hadley, OD [address] [facility] [place] [address] Annual Full Eye Exam with mac OCT documented as of this encounter Visit Diagnoses Not on filedocumented in this encounter Care Teams Bumper Straightener Relationship Specialty Start Date End Date Guanaco Hess DO [address] [place] [address] PCP - General Family Medicine 03/13/17 03/19/18 Elisabeth Edwards MD [address] [place] [phone] PCP - General Family Medicine 03/20/18 Jesus Waters MD [address] [place] [address] Neurology 04/12/22 documented as of this encounter
--- OUTSIDE RECORDS SUMMARY | 2024-08-20 16:53 | XMS_ITS | Encounter Summary ---
Author Organization [facility] Address [address] [place] [address] Care Team Providers Care Financial Planner Name Role Phone Elisabeth Edwards MD Primary Care Provider [phone] Jesus Waters MD Unavailable [phone] Source Comments In the event this information is protected by the Federal Confidentiality of Alcohol and Drug AbusePatient Records regulations: The Federal rules restrict any use of the information to criminally investigate or prosecute any alcohol or drug abuse patient.[facility] Encounter Details Date Type Department Care Team (Late st Contact Info) Description 11/03/2018 Patient g BMI [facility] [address] [address] [place] [address] [place] [address] [place] [address] [place], [place] [phone] RE: Appointment Request () Social History Tobacco Use Types Packs/Day Years Used Date Smoking Tobacco: Former Cigarettes 1 13 1 975 - 1987 Smokeless Tobacco: Never Alcohol Use Standard Drinks/Week Comments No 0 (1 standard drink = 0.6 oz pur e alcohol) Comments No Sex and Gender Information Value [...] PM EDT Office Visit Endocrinology [address] [place] [address] Sima Paz, REJI.BAG SORTER [address] [facility] [place] [address] Return in about 6 months (around 12/05/2024). 01/20/2025 9:20 AM EST Office Visit Kidney Medicine [address] [place] [address] Jose Matthews MD [address] [place] [address] 6 month follow up 04/10/2025 9:30 AM EST Office Visit Cardiology [address] [place] [address] Aleksandar De La Garza DO [address] [facility] [place] [address] 1 year follow up 06/26/2025 10:15 AM EDT Office Visit OPHT Ophthalmology [address] [place] [address] Keo Hadley, OD [address] [place] [address] Annual Full Eye Exam with mac OCT documented as of this encounter Visit Diagnoses Not on filedocumented in this encounter Care Teams Financial Planner Relationship Specialty Start Date End Date Elisabeth Edwards MD [address] [place] [phone] PCP - General Family Medicine 03/20/18 Jesus Waters MD [address] [place] [address] Neurology 04/12/22 documented as of this encounter
--- OUTSIDE RECORDS SUMMARY | 2024-08-20 16:53 | XMS_ITS | Encounter Summary ---
Author Organization [facility] Address [address] [place] [address] Care Team Providers Care Laborer Brooder Farm Name Role Phone Elisabeth Edwards MD Primary Care Provider [phone] Elisabeth Edwards MD Primary Care Provider [phone] Encounter Details Date Type Department Care Team (Late st Contact Info) Description 01/09/2018 Abstract [facility] [address] [place] [phone] Kiana Hurt, [facility] [address] [place] [address] Social History Tobacco Use Types Packs/Day Years [...] EDT Office Visit [facility] [place] [address] [phone] Yovanny He DO [address] [facility] [address] [place] [address] documented as of this encounter Visit Diagnoses Not on filedocumented in this encounter Care Teams Laborer Brooder Farm Relationship Specialty Start Date End Date Elisabeth Edwards MD PCP - General Family Medicine 08/04/22 07/03/24 Elisabeth Edwards MD [address] [place] [phone] PCP - General Family Medicine 07/04/24 documented as of this encounter
--- OUTSIDE RECORDS SUMMARY | 2024-08-20 16:53 | XMS_ITS | Encounter Summary ---
Author Organization [facility] Address [address] [place] [address] Care Team Providers Care Logistics Solution Manager Name Role Phone Elisabeth Edwards MD Primary Care Provider [phone] Jesus Waters MD Unavailable [phone] Source Comments In the event this information is protected by the Federal Confidentiality of Alcohol and Drug AbusePatient Records regulations: The Federal rules restrict any use of the information to criminally investigate or prosecute any alcohol or drug abuse patient.[facility] Encounter Details Date Type Department Care Team (Late st Contact Info) Description 12/29/2019 Patient Msg Gastroenterology [address] [address] Provider, C[facility] Please read CYNDIE before Dr. Duran's appointment Social History Tobacco Use Types Packs/Day Years [...] often do you attend chur ch or mormonism services? More than 4 times per year 10/06/2019 Do you belong to any clubs o r organizations such as yarsanism groups, unions, fraternal or athletic groups, or [...] Answer Date Recorded PHQ-2 score 1 10/02/2019 [facility] Occupat ional Health - Occupational Stress [...] slept in a fpc (including now)? No 10/06/2019 Education Answer Date [...] as of this encounter Functional Status * Question Answer Date of Assessment Author Q1: How often do you have a drink containing alcohol? Never 12/29/2019 7:47 AM Qing Benoit RN Q3: How often do you have si x or more drinks on one occasion? Never 12/29/2019 7:47 AM Qing Benoit RN * Are you deaf or do you [...] 2:00 PM EDT Office Visit Endocrinology [address] [place] [address] Sima Paz, REJI.BREASTFEEDING PEER COUNSELOR [address] [facility] [place] [address] Return in about 6 months (around 12/05/2024). 01/20/2025 9:20 AM EST Office Visit Kidney Medicine [address] [place] [address] Jose Matthews MD [address] [place], [place] [address] 6 month follow up 04/10/2025 9:30 AM EST Office Visit Cardiology [address] [facility] [place] [address] Aleksandar De La Garza, [address] [place] [address] 1 year follow up 06/26/2025 10:15 AM EDT Office Visit OPHT Ophthalmology [address] [facility] [place] [address] Keo Hadley S, OD [address] [place] [address] Annual Full Eye Exam with mac OCT documented as of this encounter Visit Diagnoses Not on filedocumented in this encounter Care Teams Logistics Solution Manager Relationship Specialty Start Date End Date Elisabeth Edwards MD [address] [place] [address] PCP - General Family Medicine 03/20/18 Jesus Waters MD [address] [place] [address] Neurology 04/12/22 documented as of this encounter
--- OUTSIDE RECORDS SUMMARY | 2024-08-20 16:53 | XMS_ITS | Encounter Summary ---
Author Organization [facility] Address [address] [place] [address] Care Team Providers Care Manager Filter Name Role Phone Elisabeth Edwards MD Primary Care Provider [phone] Jesus Waters MD Unavailable [phone] Source Comments In the event this information is protected by the Federal Confidentiality of Alcohol and Drug AbusePatient Records regulations: The Federal rules restrict any use of the information to criminally investigate or prosecute any alcohol or drug abuse patient.[facility] Encounter Details Date Type Department Care Team (Late st Contact Info) Description 10/15/2019 Patient Msg Internal Medicine [place] [address] [place] [address] Haim Lozano MD [address] [facility] [place] [phone] sleep study Social History Tobacco Use Types Packs/Day [...] often do you attend chur ch or spiritism services? More than 4 times per year 10/06/2019 Do you belong to any clubs o r organizations such as spiritism groups, unions, fraternal or athletic groups, or [...] Answer Date Recorded PHQ-2 score 1 10/02/2019 [facility] Occupat ional Health - Occupational [...] slept in a prison (including now)? No 10/06/2019 Education Answer Date [...] have Coronavirus / COVID-19? No / Unsure 10/16/2019 3:22 PM EDT documented as of this encounter [...] 2:00 PM EDT Office Visit Endocrinology [address] [facility] [place] [address] Sima Paz APRN.PRESS SET UP PERSON [address] [place] [address] Return in about 6 months (around 12/05/2024). 01/20/2025 9:20 AM EST Office Visit Kidney Medicine [address] [place] [address] Jose Matthews MD [address] [place], [place] [phone] 6 month follow up 04/10/2025 9:30 AM EST Office Visit Cardiology [address] [facility] [place] [address] Aleksandar De La Garza DO [address] [facility] [place] [address] 1 year follow up 06/26/2025 10:15 AM EDT Office Visit OPHT Ophthalmology [address] [facility] [place] [address] Keo Hadley, OD [address] [place] [address] Annual Full Eye Exam with mac OCT documented as of this encounter Visit Diagnoses Not on filedocumented in this encounter Care Teams Manager Filter Relationship Specialty Start Date End Date Elisabeth Edwards MD [address] [place] [phone] PCP - General Family Medicine 03/20/18 Jesus Waters MD [address] [place] [address] Neurology 04/12/22 documented as of this encounter
--- OUTSIDE RECORDS SUMMARY | 2024-08-20 16:53 | XMS_ITS | Encounter Summary ---
Author Organization [facility] Address [address] [place] [address] Care Team Providers Care Dye Penetrant Testing Technician Name Role Phone Elisabeth Edwards MD Primary Care Provider [phone] Elisabeth Edwards MD Primary Care Provider [phone] Encounter Details Date Type Department Care Team (Late st Contact Info) Description 01/09/2018 Abstract [facility] [address] [place] [phone] Kiana Hurt, [facility] [address] [place] [address] Social History Tobacco Use Types Packs/Day Years [...] EDT Office Visit [facility] [address] [phone] Yovanny He DO [address] [facility] [address] [place] [address] documented as of this encounter Visit Diagnoses Not on filedocumented in this encounter Care Teams Dye Penetrant Testing Technician Relationship Specialty Start Date End Date Elisabeth Edwards MD PCP - General Family Medicine 08/04/22 07/03/24 Elisabeth Edwards MD [address] [place] [phone] PCP - General Family Medicine 07/04/24 documented as of this encounter
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
[2024-08-20 18:18] VITALS: BP 158/90
== END 2024-08-20 18:19 | disposition home or self-care (01) ==
PROVIDERS: Emergency Provider Emergency Medicine; PCP Family Medicine
DX: Z04.1 Encounter for examination and observation following transport accident (principal)
CPT/HCPCS: 70450; 71045; 72125; 99284